=== PATIENT | female | born 1940 | race Caucasian/White ===

== ENCOUNTER 2023-02-18 09:39 | Emergency (ER) | payer MEDICARE, SELFPAY ==
--- NOTE | ~2023-02-18 | XR_ITS ---
EXAMINATION: XR wrist LT min 3V DATE: 02/18/2023 09:58 INDICATION: Left wrist pain. Fall. TECHNIQUE: 4 views of left wrist were obtained. COMPARISON: Left hand radiograph 03/31/2021 FINDINGS: Bone alignment is normal. There is a transverse fracture of distal radius. The distal fract ure fragment demonstrates impaction and dorsal angulation. There is 5 degrees dorsal tilt of the dist al articular surface. There is severe osteoarthritis of triscaphe joint and first carpometacarpal hawa nt. IMPRESSION: 1. Transverse fracture of distal radius. 2. Polyarticular osteoarthritis. Reviewed, dictated and finalized at location A.
[2023-02-18 09:43] VITALS: BP 183/106; PULSE 86; RESP 16; TEMP 36.8; O2SAT 100
--- NOTE | 2023-02-18 10:12 | ED.UPPEXIN ---
HPI - Extremity Injury (Upper) General Chief Complaint: Extremity Injury, Upper Stated Complaint: left wrist injury Time Seen by Provider: 02/18/23 09:50 History of Present Illness HPI narrative: 82-year-old left-handed female here for evaluation of left wrist pain after fall. Patient states that she tripped and lost her balance, catching herself with her left hand outstretched. She has not had pain and swelling to the wrist. Took an Aleve without relief of her pain. There is no numbness or tingling in the fingers. No difficulty moving the elbow or shoulder. No head injury or loss of consciousness in the fall. Related Data Allergies Allergy/AdvReac Type Severity Reaction Status Date / Time Sulfa (Sulfonamide Allergy Unknown Unknown Verified 02/18/23 10:18 Antibiotics) Review of Systems Review of Systems: Gen: Denies fevers or chills Eyes: Denies eye pain or visual change ENT: Denies congestion Respiratory: Denies shortness of breath or cough CV: Denies chest pain or palpitations GI: Denies abdominal pain nausea, emesis or diarrhea denies burning, urgency, frequency or hematuria Musculoskeletal: Reports left wrist pain Neuro: Denies numbness, tingling, weakness or focal weakness Skin: Denies rash Except as documented, all other systems reviewed and negative [facility] Past Medical History Medical History Arthritis of hand, degenerative Digital mucous cyst of finger of right hand Hip pain Hx of fracture of wrist Vision loss Family History Family History Other Family history of malignant neoplasm Social History Social History Smoking status: Never smoker Alcohol intake: current Exam Narrative: APPEARANCE: Well appearing, no pain in distress, well-nourished. Head: Normocephalic and atraumatic. EYES: PERRLA/EOMI, conjunctivae clear NOSE: No nasal drainage EARS: External ear normal in appearance THROAT: Oropharynx is clear. Mucous membranes are moist. NECK: Supple. No adenopathy, no masses. RESPIRATORY: Airway patent, respirations nonlabored. Clear to auscultation bilaterally, no rales, rhonchi, wheezing. CARDIOVASCULAR: 2+ radial pulses bilaterally. Regular rate and rhythm without murmurs, rubs, or gallops. ABDOMINAL: Normoactive bowel sounds. Soft, nontender, nondistended. No rebound tenderness or guarding. MUSCULOSKELETAL: There is tenderness to palpation along the distal third of the radius. There is some overlying swelling in that area. There is no tenderness to palpation along the carpal bones, snuffbox, phalanges. There is full range of motion in the fingers. Compartments are soft. NEURO: Normal speech. No focal neurologic deficits. SKIN: Skin is warm and dry. No rashes. PSYCHIATRIC: Normal affect/mood. Course Vital Signs Vital signs: Vital Signs Temperature 98.2 F 02/18/23 09:43 Pulse Rate 86 02/18/23 09:43 Respiratory Rate 16 02/18/23 09:43 Blood Pressure 183/106 H 02/18/23 09:43 Pulse Oximetry 100 02/18/23 09:43 Temperature 98.2 F 02/18/23 09:43 Pulse Rate 100 02/18/23 12:21 Respiratory Rate 18 02/18/23 12:21 Blood Pressure 155/95 H 02/18/23 12:21 Pulse Oximetry 97 02/18/23 12:21 MDM - Extremity Injury (Upper) MDM Narrative Medical decision making narrative: 82-year-old female here for evaluation of left wrist pain after she fell onto an outstretched hand earlier today the stairs. There is tenderness to palpation to the distal radius with mild swelling. NVID, compartments are soft. Evidence of a transverse distal radius fracture on the x-ray. She was placed in a splint and provided with orthopedic follow-up. We discussed return precautions and she voiced understanding. Discharge Plan Discharge Clinical Impression: Fracture of distal end of left radius Qu
[2023-02-18] MEDS: HYDROcodone/acetaminophen (*CRX) 5-325 MG TABLET 1 TAB PO (10:21)
[2023-02-18 12:21] VITALS: BP 155/95; PULSE 100; RESP 18; O2SAT 97
== END 2023-02-18 12:24 | disposition home or self-care (01) ==
PROVIDERS: Emergency Provider Physician Assistant; PCP Family Medicine
DX: S52.592A Other fractures of lower end of left radius, initial encounter for closed fracture (principal); M19.049 Primary osteoarthritis, unspecified hand; W01.0XXA Fall on same level from slipping, tripping and stumbling without subsequent striking against object, initial encounter
CPT/HCPCS: 29125; 73110; 99284; A9270

== ENCOUNTER → 2023-05-09 12:22 | Outpatient (CLI) | payer MEDICARE, SELFPAY ==
--- NOTE | ~2023-05-09 | DEXA_ITS ---
Bone Density Report Name: MORRIS KLEIN Age: 83 Sex: Female Ethnicity: White Date of : 1940 Indication: postmenopausal; screening for osteoporosis; height loss; prior fracture; Referring Provider: Nickie, Efrem Study: Bone densitometry was performed. Exam Date: May 09, 2023 Accession number: [id number] Bone Density: Region BMD T-score Z-score Classification AP Spine (L1-L4) 0.651 -3.6 -0.8 Osteoporosis Femoral Neck (Left) 0.373 -4.3 -1.8 Osteoporosis Total Hip (Left) 0.454 -4.0 -1.7 Osteoporosis Femoral Neck (Right) 0.483 -3.3 -0.8 Osteoporosis Total Hip (Right) 0.453 -4.0 -1.7 Osteoporosis Total Hip Mean 0.454 -4.0 -1.7 Osteoporosis World Health Organization criteria for BMD impression classify patients as: Normal (T-score at or above -1.0), Osteopenia (T-score between -1.0 and -2.5), or Osteoporosis (T-score at or below -2.5). 10-year Fracture Risk: FRAX not reported because: Some T-score for Spine Total or Hip Total or Femoral Neck at or below -2.5 Prior hip or vertebral fracture Clinical Information Provided by Patient: Have had a previous hip or vertebral fracture Has had a low trauma fracture Has used the following medications: Vitamin D Patient maximum height was 64 Menopause Age: 53 Drinks caffeinated beverages Onset of menses at age 12.5 Number of children 1 Impression: The patient has established osteoporosis, based on the Left Femoral Neck T-score and the existence of a prior fracture. The patient has risk factors, including: previous fracture. Discussion: HIGH RISK OF FRACTURE. BONE DENSITY IS UNDESIRABLY LOW AT ONE OR MORE SKELETAL SITES, CONSISTENT WITH POSTMENOPAUSAL OSTEOPOROSIS. This patient's lowest T-score, in a patient who has previously fractured, meets the World Health Organization's (WHO) criteria for severe osteoporosis. In untreated patients, the risk of osteoporotic fracture increases approximately two-fold for each 1.0 SD decrease in T-score. Low bone density is not the only risk factor for fracture; also consider factors such as patient's age, frailty or poor health, risk of falling, risk of injury, previous osteoporotic fracture, family history of osteoporosis, cigarette smoking, low body weight, etc. Not everyone with low bone mineral density has osteoporosis; osteomalacia and other metabolic bone disorders should also be considered. Patients who have osteoporosis should be evaluated for specific diseases and conditions (secondary causes) that may cause or contribute to bone loss. The [place] [employer] Endocrinologists (AACE) and National Osteoporosis Foundation (NOF) recommend pharmacologic intervention for all postmenopausal women with a previous hip or vertebral fracture and a T-score in this range. The patient should follow a healthful lifestyle
== END ==
PROVIDERS: PCP Student in an Organized Health Care Education/Training Program; Visit Provider Student in an Organized Health Care Education/Training Program
DX: Z13.820 Encounter for screening for osteoporosis (principal); M81.0 Age-related osteoporosis without current pathological fracture; Z78.0 Asymptomatic menopausal state
CPT/HCPCS: 77080

== ENCOUNTER 2023-11-06 12:35 | Inpatient (IN) | payer MEDICARE, SELFPAY ==
--- NOTE | ~2023-11-06 | XR_ITS ---
XR hip RT 2V w AP pelvis 11/06/2023 14:30 Indication: Right hip pain after fall Procedure: AP pelvis and 3 views right hip Comparison: No prior studies for comparison. Findings: There is a probable nondisplaced right femoral neck fracture. Osteopenia. Pelvic rings are intact. No significant soft tissue abnormality. No foreign bodies. There is osteoarthritis of the hip s. Impression: 1: Probable nondisplaced right femoral neck fracture. Recommend confirmation with CT. Reviewed, dictated and finalized at location B. ICIST SOLID STATE Impression: 1: Probable nondisplaced right femoral neck fracture. Recommend confirmation wi CT.
--- NOTE | ~2023-11-06 | CT_ITS ---
EXAMINATION: CT hip RT wo con DATE: 11/06/2023 15:43 INDICATION: Right femoral neck fracture post fall TECHNIQUE: High resolution computed tomography (CT) of the right hip was performed without intravenou s contrast. Additional sagittal and coronal reconstructions were performed. The dose-length product w as 137.33 mGy-cm. COMPARISON: Radiograph dated 11/06/2023 FINDINGS: Transcervical fracture of the proximal right femur. There is mild posterior and inferior predominant impaction. Mild to moderate osteoarthritis of the right hip. No significant joint effusion. No other fractures identified. Visualized portion of the bladder, uterus and bowels are unremarkable. No patho logically enlarged right pelvic or inguinal lymphadenopathy. IMPRESSION: 1. And cervical fracture of the proximal right femur with mild posterior and inferior impaction. Reviewed, dictated and finalized at location A. ING MACHINE TOOL SETTER IMPRESSION: 1. And cervical fracture of the proximal right femur with mild posterior and in ferior impaction.
--- NOTE | ~2023-11-06 | XR_ITS ---
EXAMINATION: XR chest 1V DATE: 11/06/2023 15:48 INDICATION: Fall at home with right hip fracture TECHNIQUE: frontal view of the chest was obtained. COMPARISON: None FINDINGS: Mild hyperexpansion of lungs. Mild to moderate biapical pleural-parenchymal scarring. No other airspa ce opacities, pulmonary edema, pleural effusion or pneumothorax. The cardiomediastinal silhouette is normal. Mild thoracolumbar levocurvature likely compensatory for a partially visualized lumbar dextro curvature. IMPRESSION: 1. No acute cardiopulmonary disease. Reviewed, dictated and finalized at location A. E ECOLOGIST
--- NOTE | ~2023-11-06 | CT_ITS ---
EXAMINATION: CT cervical spine wo con DATE: 11/06/2023 14:25 INDICATION: Status post fall. TECHNIQUE: Computed tomography (CT) of the cervical spine was performed without intravenous contrast. The dose-length product was 101 mGy-cm. Automated exposure control and iterative reconstruction tech nique were employed. COMPARISON: None FINDINGS: Vertebral junction is normal. Odontoid process is normal. There is disc narrowing and endpl ate degenerative change at C3-4, C4-5, C5-6 and C6-7. There is degenerative anterolisthesis at C7-T1. There is multilevel uncinate and facet hypertrophy. There is apical pleural thickening/scarring. Odo ntoid process is normal. No evidence for perched facet. There is carotid atherosclerosis. IMPRESSION: 1. Moderate cervical spondylosis. Reviewed, dictated and finalized at location B. DENCE DIRECTOR
--- NOTE | ~2023-11-06 | XR_ITS ---
EXAMINATION: XR surgery orthopedic DATE: 11/07/2023 18:25 INDICATION: Right femoral neck fracture. TECHNIQUE: 2 intraoperative spot fluoroscopic views of right hip were obtained. I was not present. Fl uoroscopy exposure time was 3 minutes 32 seconds. COMPARISON: CT 11/06/2023 FINDINGS: There is a subcapital fracture of right femoral neck with impaction. Internal fixation is s een with 3 lag screws. There is moderate right hip osteoarthritis. IMPRESSION: 1. Subcapital fracture of right femoral neck status post internal fixation. 2. Moderate hip osteoarthritis. Reviewed, dictated and finalized at location E. WARE SALES ASSISTANT
--- NOTE | ~2023-11-06 | CT_ITS ---
EXAMINATION: CT brain wo con DATE: 11/06/2023 14:25 INDICATION: Status post fall TECHNIQUE: Computed tomography (CT) of the head was performed without intravenous contrast. The dose- length product was 605.33 mGy-cm. Automated exposure control and iterative reconstruction technique were employed. COMPARISON: None FINDINGS: Generalized atrophy. There are scattered mild periventricular and subcortical white matter changes, most likely related to small vessel ischemic disease (microangiopathy). No ventriculomegaly or midline shift. Basilar cisterns are patent. There is mucosal thickening of the right maxillary sin us. Mastoids are pneumatized. No depressed skull fractures. IMPRESSION: 1. No acute intracranial abnormality. 2: Chronic age-related findings. 3: Right maxillary sinus disease. Reviewed, dictated and finalized at location B. STIC MAID
[2023-11-06 12:33] VITALS: BP 109/77; PULSE 88; RESP 18; TEMP 36.4; O2SAT 97
[2023-11-06 14:34] VITALS: BP 125/82; PULSE 74; RESP 19; O2SAT 100
--- NOTE | 2023-11-06 15:23 | ED.FALL ---
HPI - Fall General Chief Complaint: Fall Stated Complaint: FALL, RIGHT HIP PAIN Time Seen by Provider: 11/06/23 14:09 History of Present Illness HPI Narrative: Patient is an 83-year-old female presenting after a fall. Patient slipped and fell landing on her right hip in her house. Immediately had severe right hip pain so her daughter called EMS. Did not strike her head or lose consciousness. Only complains of right hip pain. No numbness or weakness. Related Data Home Medications Medication Instructions Recorded Confirmed dorzolamide 22.3 mg-timolol 6.8 1 drp EACH EYE BID 11/06/23 11/06/23 mg/mL eye drops duloxetine 30 mg capsule,delayed 30 mg PO DAILY 11/06/23 11/06/23 release levothyroxine 25 mcg tablet 25 mcg PO DAILY 11/06/23 11/06/23 losartan 25 mg tablet 25 mg PO DAILY 11/06/23 11/06/23 simvastatin 10 mg tablet 10 mg PO HS 11/06/23 11/06/23 Allergies Allergy/AdvReac Type Severity Reaction Status Date / Time Sulfa (Sulfonamide Allergy Unknown Unknown Verified 11/07/23 17:12 Antibiotics) Review of Systems Review of Systems: All systems reviewed & are unremarkable except as noted in HPI and below PMFSH Past Medical History Medical History Arthritis Arthritis of hand, degenerative Digital mucous cyst of finger of right hand Fracture of wrist Lt wrist DOI 02/18/23 Hearing loss Hx of fracture of wrist Hyperlipidemia Hypertension Hypothyroidism Osteoporosis Trochanteric bursitis of left hip Surgical History Surgical History History of cataract extraction History of colonoscopy History of nasal septoplasty History of surgery on right wrist (05/2007) Close reduction and percutaneous pinning of right distal radius fracture. Family History Family History Other Family history of malignant neoplasm Social History Social History Social History: Surrogate medical decision maker: Edwin Card, spouse. Code status: Full code. Smoking status: Never smoker Alcohol intake: current Drinks per week: 1 Substance use: never Substance use type: does not use Do You Feel Safe in your Home?: Yes Lack of Transportation: No Lack of Food: Never True Current Housing: I Have Housing Concerned About Future Housing: No Difficulty Paying Gas/Electric Bills: No Difficulty Paying for Meds: No Currently Unemployed: No Education: Bachelor's Degree Difficulty w/ Childcare or Family Care: No Occupation/Education: retired Spiritual care concerns: No Exam Narrative: GENERAL: Nontoxic, no acute distress, pleasant cooperative HEAD: Normocephalic, atraumatic. EYES: PERRLA and EOMI. ENT: Mucous membranes dry NECK: Supple. CHEST: Clear to auscultation. No respiratory distress. HEART: Regular rate and rhythm ABDOMEN: Soft, nontender, nondistended EXTREMITIES: R hip diffusely tender, ROM limited 2/2 pain; distal pulses and ROM intact SKIN: Warm, dry, no rash. NEURO: Alert and oriented x3. PSYCH: Normal mood and affect. Course Vital Signs Vital signs: Vital Signs Temperature 97.6 F 11/06/23 12:33 Pulse Rate 88 11/06/23 12:33 Respiratory Rate 18 11/06/23 12:33 Blood Pressure 109/77 11/06/23 12:33 Pulse Oximetry 97 11/06/23 12:33 Oxygen Delivery Room Air 11/06/23 12:33 Temperature 98.1 F 11/11/23 14:00 Pulse Rate 81 11/11/23 14:00 Respiratory Rate 18 11/11/23 14:00 Blood Pressure 101/64 11/11/23 14:00 Pulse Oximetry 97 11/11/23 14:00 Oxygen Delivery Room Air 11/11/23 09:35 Oxygen Flow Rate 8 11/07/23 19:00 MDM - Fall MDM Narrative Medical decision making narrative: 83-year-old female presenting with right hip pain following a fall. X-rays are concerning for a right femoral neck fracture, C
[2023-11-06] MEDS: MORPHINE SULFATE (*CRX) 2 MG/ML INJ IV PUSH ×3 (15:59→20:22)
[2023-11-06] MEDS: SODIUM CHLORIDE 0.9% IV 1,000 ML 999 ML IV CONT (15:59)
[2023-11-06 16:07] LABS: Basophils Percent Auto 0.4 % (0.2-1.2); Eosinophils Percent Auto 0.3 % (0-4.4); Hematocrit 45.5 % (37.0-47.0); Hemoglobin 14.9 g/dL (12.0-15.0); Immature Granulocyte Absolute 0.03 K/mm3 (0.00-0.031); Immature Granulocyte Percent A 0.3 % (0-0.5); Lymphocytes Absolute Auto 1.14 K/mm3 (0.9-3.2); Lymphocytes Percent Auto 10.8 % (18.3-44.2); Mean Corpuscular HGB Conc 32.7 g/dl (32-36); Mean Corpuscular Hemoglobin 31.8 pg (26-34); Mean Corpuscular Volume 97.2 fl (80-100); Mean Platelet Volume 10.6 fl (7.4-10.4); Monocytes Absolute Auto 0.9 K/mm3 (0.1-0.6); Monocytes Percent Auto 8.8 % (2.6-8.5); Neutrophils Absolute Auto 8.4 K/mm3 (1.3-6.7); Neutrophils Percent Auto 79.4 % (45.5-73.1); Platelet Count Result 260 k/mm3 (150-375); Red Blood Count 4.68 M/mm3 (4.2-5.4); Red Cell Distribution Width 13.2 % (11.5-14.5); White Blood Count 10.6 K/mm3 (4.5-10.0)
[2023-11-06 16:17] LABS: Alanine Aminotransferase 29 U/L (6-35); Alkaline Phosphatase 100 U/L (38-126); Anion Gap 7 mmol/L (8-16); Aspartate Amino Transferase 29 U/L (14-36); Bilirubin,Total 1.5 mg/dL (0.2-1.3); Blood Urea Nitrogen 11 mg/dL (7-17); Calcium 9.6 mg/dL (8.4-10.2); Carbon Dioxide 24 mmol/L (22-30); Chloride 100 mmol/L (98-107); Estimated CRCL calculation 52 ml/min; Estimated Glomerular Filt Rate > 60; Glucose 118 mg/dL (65-110); INR 0.9; Potassium 4.6 mmol/L (3.4-5.0); Sodium 131 mmol/L (137-145)
[2023-11-06 16:18] LABS: Partial Thromboplastin Time 30.4 SECONDS (22.3-36.8)
[2023-11-06 17:32] LABS: Appearance Urine Cloudy (Clear); Bacteria Urine 4+ /hpf; Bilirubin Urine Negative (Negative); Blood Urine Negative (Negative); Color Urine Yellow (Yellow); Glucose Urine UA Negative (Negative); Ketones Urine 2+ mg/dL (Negative); Leukocyte Esterase Ur Negative LEU/UL (Negative); Nitrate Urine Negative (Negative); Non Pathogenic Casts 0-2; Protein Urine Negative (Negative); RBC Urine 0-2 /hpf (0-2); Specific Grav Ur 1.017 (1.001-1.035); Squamous Epithelial Cell Urine None seen /hpf (Few); WBC Urine 0-5 /hpf
[2023-11-06 17:37] LABS: Add Urine Microscopic? YES
--- NOTE | 2023-11-06 18:40 | ADMGEN ---
This patient, Triny Card, was admitted to [facility] Surg Room 305-02. Patient/family oriented to hospital policies and general routines including ID bracelet, bed and alarms, visiting hours, pain management, procedures, bathroom and other care routines, personal items, smoking policy, room service/diet, and visiting hours. Information on how to activate the Rapid Response Team has been discussed. Patient/Family are encouraged to report perceived risks to care and to ask questions if they do not understand what they are told or what they should do.
[2023-11-06 18:54] VITALS: BP 136/99; PULSE 90; RESP 18; TEMP 36.7; O2SAT 98
[2023-11-06 18:56] VITALS: BMI 16.4
--- NOTE | 2023-11-06 19:58 | PM.IMHP ---
H&P: HPI History of Present Illness Date/Time: 11/06/23 19:00 Chief Complaint: Right hip pain after fall. Narrative: This is a very pleasant 83-year-old female with hypertension, hyperlipidemia, and hypothyroidism who presented to the emergency department via EMS for evaluation of right hip pain after a fall. The patient provides the following history. She reports feeling a bit off balance when she attempted to get up from the couch and she fell down onto her buttocks with immediate pain in her right hip. She was unable to get herself up due to the pain. Imaging showed a transcervical fracture of the proximal right femur and she is being admitted in this setting for surgical correction. At the time my evaluation she describes a hard, aching pain rated 8/10. She did not sustain any other injuries in the fall and denies head trauma and loss of consciousness. She does not recall feeling lightheaded or dizzy prior to the fall and denies vertigo, focal weakness, and paresthesias. Review of Systems Review of Systems: Twelve systems were reviewed. She has had some URI symptoms this winter but is healthy at this time. Urine showed 4+ bacteria but was negative for nitrates, leukocyte esterase, and no significant WBC. She has no symptoms to suggest UTI. No fever, chills, or sweats. No chest or pleuritic pain. No shortness of breath. Except as documented, all other systems were reviewed and are negative. [facility] Past Medical History Medical History (Updated 11/06/23 @ 22:12 by Isidra Freeman PA-C) Arthritis Hearing loss Hyperlipidemia Hypertension Hypothyroidism Osteoporosis Surgical History Surgical History History of cataract extraction History of colonoscopy History of nasal septoplasty History of surgery on right wrist (05/2007) Close reduction and percutaneous pinning of right distal radius fracture. Family History Family History Other Family history of malignant neoplasm Social History Social History (Updated 11/06/23 @ 22:09 by Isidra Freeman PA-C) Social History: Surrogate medical decision maker: Edwin Card, spouse. Code status: Full code. Smoking status: Never smoker Alcohol intake: current Drinks per week: 1 Substance use: never Substance use type: does not use Do You Feel Safe in your Home?: Yes Lack of Transportation: No Lack of Food: Never True Current Housing: I Have Housing Concerned About Future Housing: No Difficulty Paying Gas/Electric Bills: No Difficulty Paying for Meds: No Currently Unemployed: No Education: Bachelor's Degree Difficulty w/ Childcare or Family Care: No Occupation/Education: retired Spiritual care concerns: No Meds Home Medications and Allergies Home Medications Medication Instructions Recorded Confirmed Type dorzolamide 22.3 mg-timolol 6.8 1 drp EACH EYE BID 11/06/23 11/06/23 History mg/mL eye drops duloxetine 30 mg capsule,delayed 30 mg PO DAILY 11/06/23 11/06/23 History release levothyroxine 25 mcg tablet 25 mcg PO DAILY 11/06/23 11/06/23 History losartan 25 mg tablet 25 mg PO DAILY 11/06/23 11/06/23 History simvastatin 10 mg tablet 10 mg PO HS 11/06/23 11/06/23 History Allergies Allergy/AdvReac Type Severity Reaction Status Date / Time Sulfa (Sulfonamide Allergy Unknown Unknown Verified 11/06/23 12:39 Antibiotics) Vital Signs Vital Signs - 24 hr 11/06/23 12:33 11/06/23 14:34 11/06/23 18:54 Temperature 97.6 F 98.1 F Pulse Rate 88 74 90 Respiratory Rate 18 19 18 Blood Pressure 109/77 125/82 136/99 H Pulse Oximetry 97 100 98 Oxygen Delivery Room Air Exam Narrative: General: Thin, frail elderly female supine in bed. Weight: 44.7 kg. BMI: 16.4. HEENT: Normocephalic, atraumatic. Very hard of hearing. PERRL, EOMI. Sclera anicteric. Tacky mucous membranes. Neck: Supp
[2023-11-06 20:34] VITALS: BP 139/88; PULSE 93; RESP 16; TEMP 37.2; O2SAT 96
[2023-11-06] MEDS: ceFAZolin 1 GM/NS 50 ML 1 GM/50 ML BAG IVPB (23:06)
[2023-11-06] MEDS: SODIUM CHLORIDE 0.9% IV 1,000 ML 100 ML IV CONT (23:06)
[2023-11-06] MEDS: DORZOLAMIDE/TIMOLOL OPHTH SOL 10 ML BOTTLE 1 DROP EACH EYE (23:07)
[2023-11-06] MEDS: SIMVASTATIN 10 MG TABLET PO (23:16)
[2023-11-07] VITALS (15 sets, daily range): BP systolic 110–164; BP diastolic 65–113; PULSE 65–98; RESP 12–20; TEMP 35.7–37.3; O2SAT 93–100; BMI 16.6
[2023-11-07] MEDS: MORPHINE SULFATE (*CRX) 2 MG/ML INJ IV PUSH ×2 (00:15→05:20)
[2023-11-07] MEDS: ceFAZolin 1 GM/NS 50 ML 1 GM/50 ML BAG IVPB ×2 (05:20→15:52)
[2023-11-07 06:04] LABS: Hematocrit 40.8 % (37.0-47.0); Hemoglobin 13.2 g/dL (12.0-15.0); Mean Corpuscular HGB Conc 32.4 g/dl (32-36); Mean Corpuscular Hemoglobin 32.2 pg (26-34); Mean Corpuscular Volume 99.5 fl (80-100); Mean Platelet Volume 11.1 fl (7.4-10.4); Platelet Count Result 213 k/mm3 (150-375); Red Cell Distribution Width 13.2 % (11.5-14.5); White Blood Count 7.2 K/mm3 (4.5-10.0)
[2023-11-07 06:15] LABS: Anion Gap 3 mmol/L (8-16); Blood Urea Nitrogen 9 mg/dL (7-17); Calcium 8.8 mg/dL (8.4-10.2); Carbon Dioxide 26 mmol/L (22-30); Chloride 104 mmol/L (98-107); Estimated CRCL calculation 42 ml/min; Estimated Glomerular Filt Rate > 60; Glucose 109 mg/dL (65-110); Magnesium 1.9 mg/dL (1.6-2.3); Potassium 3.8 mmol/L (3.4-5.0); Sodium 133 mmol/L (137-145)
--- NOTE | 2023-11-07 07:54 | PCPTNOTE ---
Addendum entered by Claire Navarro, PT 11/07/23 11:55: Pt to have ortho surgery. Will require new therapy orders from ortho surgeon after surgery. PT orders discarded due to pt not being medically appropriate to participate at this time. Original Note: Pt is currently on bedrest and has ortho consult pending. Physical therapy will wait for ortho recommendations and removal of bedrest prior to seeing pt.
--- NOTE | 2023-11-07 08:09 | PCOTNOTE ---
Addendum entered by Tesha Araujo OT 11/07/23 12:15: Pt to have ortho surgery. Will require new therapy orders from ortho surgeon after surgery. OT orders cancelled at this time due to pt. not being appropriate for therapy services. Original Note: Pt is currently on bedrest and has ortho consult pending. Occupational therapy will wait for ortho recommendations and removal of bedrest prior to seeing pt.
--- NOTE | 2023-11-07 09:03 | PM.CNOR ---
Assessment and Plan Assessment and plan (1) Closed transcervical fracture of right femur: Qualifiers: Encounter type: initial encounter Qualified Code(s): S72.031A - Displaced midcervical fracture of right femur, initial encounter for closed fracture <Calli Shirley [employer] - Last Filed: 11/07/23 12:12> Code(s): S72.031A - Displaced midcervical fracture of right femur, initial encounter for closed fracture <Calli Dentonsaniya [facility] - Last Filed: 11/07/23 12:12> Status: Acute <Calli Dentonsanyia [facility] - Last Filed: 11/07/23 12:12> Assessment and Plan: History, exam and radiographs reviewed with the patient and daughter at the bedside. The fracture type and injury discussed with the patient and family. Operative and nonoperative treatment options reviewed. The patient elects for operative treatment. Discussed CRPP Right Hip Risks of surgery including but not limited to neurovascular damage, wound complications, blood clot, pulmonary embolus, stroke, myocardial infarction, anesthetic risks up to and including were reviewed. Continued pain and possible dysfunction were explained. No guarantees were offered. The patient understands and wishes to proceed. Plan: CRPP RIGHT Hip by Dr. Kerri WOLF. Bedrest. Pain Control. Obtain consent. HOLD anticoagulation. FALL PRECAUTIONS <Calli AcostaHelen Shirley [facility] - Last Filed: 11/07/23 12:12> (2) Bacteriuria: Code(s): R82.71 - Bacteriuria <Callisa Antoni Shirley [facility] - Last Filed: 11/07/23 12:12> Status: Acute <Calli AcostaHelen Fern, [facility] - Last Filed: 11/07/23 12:12> (3) Hyponatremia: Code(s): E87.1 - Hypo-osmolality and hyponatremia <Callisa Antoni Shirley [facility] - Last Filed: 11/07/23 12:12> Status: Acute <Calli KarlaHelen Shirley [facility] - Last Filed: 11/07/23 12:12> (4) Hyperlipidemia: Code(s): E78.5 - Hyperlipidemia, unspecified <Calli Antoni Shirley [facility] - Last Filed: 11/07/23 12:12> Status: Acute <CARITO Garcia - Last Filed: 11/07/23 12:12> (5) Hypothyroidism: Code(s): E03.9 - Hypothyroidism, unspecified <CARITO Garcia - Last Filed: 11/07/23 12:12> Status: Acute <CalliCARITO Tomas - Last Filed: 11/07/23 12:12> Assessment and Plan: Reviewed history, exam, radiographs and current labs with attending MD and covering surgeon, Dr. Manning, who agrees with current plan as indicated above. No further recommendations from Dr. Manning at this time. <CARITO Garcia - Last Filed: 11/07/23 12:12> History of Present Illness HPI Consult date: 11/07/23 <CARITO Garcia - Last Filed: 11/07/23 12:12> 11/07/23 <Mayank Manning MD - Last Filed: 11/07/23 17:24> Chief complaint: R Hip Fx <CARITO Garcia - Last Filed: 11/07/23 12:12> Narrative: 83 year old female admitted s/p fall at home. Per patient report, she slid off of the sofa onto the ground and was then unable to bear weight on the RLE. Hip CT in the ED reveals a transcervical fracture of the proximal right femur with mild posterior and inferior impaction. Patient admitted for further orthopedic evaluation, pain control and mobility. <CARITO Garcia - Last Filed: 11/07/23 12:12> Review of Systems Review of Systems: All systems reviewed & are unremarkable except as noted in HPI and below <CARITO Garcia - Last Filed: 11/07/23 12:12> [facility] Past Medical History Medical History: Medical History Arthritis Arthritis of hand, degenerative Digital mucous cyst of finger of right hand Fracture of wrist Lt wrist DOI 02/18/23 Hearing loss Hx of fracture of wrist Hyperlipidemia Hypertension Hypothyroidism Osteoporosis Trochanteric bursitis of left hip <Calli Shirley, CARITO - Last Filed: 11/07/23 12:12> Surgical History Surgical History: Surgical History (Reviewed 11/07/23 @ 16:43 by Margarito Valdez Pow
[2023-11-07] MEDS: HYDROcodone/acetaminophen (*CRX) 5-325 MG TABLET 1 TAB PO ×2 (09:30→15:47)
[2023-11-07] MEDS: DULoxetine HCL 30 MG CAPSULE.DR PO (09:30)
[2023-11-07] MEDS: DORZOLAMIDE/TIMOLOL OPHTH SOL 10 ML BOTTLE 1 DROP EACH EYE ×2 (09:31→21:35)
--- NOTE | 2023-11-07 11:26 | PM.IMPN ---
Progress Note: A&P Assessment and Plan (1) Closed transcervical fracture of right femur: Qualifiers: Encounter type: initial encounter Qualified Code(s): S72.031A - Displaced midcervical fracture of right femur, initial encounter for closed fracture Code(s): S72.031A - Displaced midcervical fracture of right femur, initial encounter for closed fracture Status: Acute Assessment and Plan: Patient going to OR today for bipolar hip replacement with Dr. Guerrero (2) Bacteriuria: Code(s): R82.71 - Bacteriuria Status: Acute Assessment and Plan: Patient on Ancef pre-op will plan to defer to culture as no leukocytes esterase and 0-5 WBCs on UA but 4+ bacteriuria. (3) Hyponatremia: Code(s): E87.1 - Hypo-osmolality and hyponatremia Status: Acute Assessment and Plan: Sodium 131 on admit, 133 this morning (4) Hypertension: Code(s): I10 - Essential (primary) hypertension Status: Acute Assessment and Plan: Stable, continue home medications (5) Hyperlipidemia: Code(s): E78.5 - Hyperlipidemia, unspecified Status: Acute Assessment and Plan: Stable, continue home medications (6) Hypothyroidism: Code(s): E03.9 - Hypothyroidism, unspecified Status: Acute Assessment and Plan: Continue home medications Plan Going to OR today PT/OT for SNF vs [facility] post op for rehab Time Spent With Patient Time with patient: 25 - 35 minutes Subjective Date/time seen: 11/07/23 11:26 Interval history: This is an 83-year-old female patient past history hypertension hypothyroidism hearing loss and recent memory changes suggestive [id number] dementia who presents to the hospital after a fall from her couch when she was trying to stand up. She reports that it is not off the ground when she landed she fractured her right hip. Patient denies any other injuries. Laboratory assessment shows mild hyponatremia, urinalysis with 4+ bacteria but no leukocyte esterase and minimal white cells. Will defer to culture. Patient is going to the operating room this afternoon for bipolar hip replacement. Discussed with family that she will likely need SNF care [facility] Review of Systems Review of Systems: All systems reviewed & are unremarkable except as noted in HPI and below Exam Narrative: General: Thin, frail elderly female supine in bed. HEENT: Normocephalic, atraumatic. Very hard of hearing. PERRL, EOMI. Sclera anicteric. Tacky mucous membranes. Neck: Supple. No JVD. Respiratory: Lungs are clear to auscultation bilaterally. Cardiovascular: Regular rate and rhythm with S1-S2. Gastrointestinal: Abdomen is soft, nontender, and nondistended with positive bowel sounds. Skin: Warm and dry. No rash or lesions on limited exam. Extremities: No cyanosis, clubbing, or edema. She is tender to palpation over the right anterior lateral hip. No gross deformities noted. Radial and pedal pulses intact. She is neurovascularly intact distal to the fracture site. Neurological: Alert. Cranial nerves 2-12 are grossly intact. No gross focal deficits to casual conversation. Psychiatric: Pleasant and cooperative with appropriate mood and affect. Objective Data Vital Signs Vital Signs: Vital Signs - 24 hr 11/06/23 12:33 11/06/23 14:34 11/06/23 18:54 Temperature 36.4 C 36.7 C Pulse Rate 88 74 90 Respiratory Rate 18 19 18 Blood Pressure 109/77 125/82 136/99 H Pulse Oximetry 97 100 98 Oxygen Delivery Room Air 11/06/23 20:34 11/07/23 05:25 Temperature 37.2 C 36.8 C Pulse Rate 93 75 Respiratory Rate 16 16 Blood Pressure 139/88 112/72 Pulse Oximetry 96 95 Oxygen Delivery Intake/Output Intake/Output: Intake & Output 11/04/23 11/05/23 11/06/23 11/07/23 23:59 23:59 23:59 23:59 Intake Total 1050 362 Output Total 725 Balance 1050 -363 Meds/Results Medications: Active
[2023-11-07] MEDS: SODIUM CHLORIDE 0.9% IV 1,000 ML 50 ML IV CONT (11:38)
--- NOTE | 2023-11-07 16:43 | WPDANESEPPF ---
Anes - Initial Pre Proc Eval Procedure: Operation Date: 11/07/23 16:00 Proposed Procedures p Right Hip Pinning - Mayank Manning MD Date/Time: 11/07/23 16:43 Surgeon: Salty Fenton MD Pre Op Diagnosis: R Hip Fx Patient Data Age: 83 Gender: F Height: 1.65 m Weight: 45.4 kg Last Vital Signs Temp 36.8 C 11/07/23 05:25 Pulse 75 11/07/23 05:25 Resp 16 11/07/23 05:25 BP 112/72 11/07/23 05:25 Pulse Ox 95 11/07/23 05:25 O2 Del Method Room Air 11/06/23 12:33 Allergies Allergy/AdvReac Type Severity Reaction Status Date / Time Sulfa (Sulfonamide Allergy Unknown Unknown Verified 11/06/23 12:39 Antibiotics) Home Medications Medication Instructions Recorded Confirmed Type dorzolamide 22.3 mg-timolol 6.8 1 drp EACH EYE BID 11/06/23 11/06/23 History mg/mL eye drops duloxetine 30 mg capsule,delayed 30 mg PO DAILY 11/06/23 11/06/23 History release levothyroxine 25 mcg tablet 25 mcg PO DAILY 11/06/23 11/06/23 History losartan 25 mg tablet 25 mg PO DAILY 11/06/23 11/06/23 History simvastatin 10 mg tablet 10 mg PO HS 11/06/23 11/06/23 History Laboratory Tests 11/06/23 11/07/23 17:15 05:34 WBC 7.2 K/mm3 (4.5-10.0) RBC 4.10 L M/mm3 (4.2-5.4) Hgb 13.2 g/dL (12.0-15.0) Hct 40.8 % (37.0-47.0) MCV 99.5 fl (80-100) MCH 32.2 pg (26-34) MCHC 32.4 g/dl (32-36) RDW 13.2 % (11.5-14.5) Plt Count 213 k/mm3 (150-375) MPV 11.1 H fl (7.4-10.4) Sodium 133 L mmol/L (137-145) Potassium 3.8 mmol/L (3.4-5.0) Chloride 104 mmol/L (98-107) Carbon Dioxide 26 mmol/L (22-30) Anion Gap 3 L mmol/L (8-16) BUN 9 mg/dL (7-17) Creatinine 0.60 L mg/dL (0.7-1.0) Estim Creat Clear Calc 42 ml/min Estimated GFR > 60 (59 - ) Glucose 109 mg/dL (65-110) Calcium 8.8 mg/dL (8.4-10.2) Magnesium 1.9 mg/dL (1.6-2.3) TSH (Reflex) 3.190 uIU/mL (0.465-4.68) Urine Color Yellow (Yellow) Urine Appearance Cloudy H (Clear) Urine pH 7.0 (5.0-9.0) Ur Specific [place] 1.017 (1.001-1.035) Urine Protein Negative mg/dL (Negative) Urine Glucose (UA) Negative mg/dL (Negative) Urine Ketones 2+ H mg/dL (Negative) Ur Blood (Man) Negative (Negative) Urine Nitrate Negative (Negative) Urine Bilirubin Negative (Negative) Urine Urobilinogen 1.0 mg/dL (<2.0) Leukocyte Esterase Rfl Negative JASMYN/UL (Negative) Urine RBC 0-2 /hpf (0-2) Urine WBC 0-5 /hpf Ur Squamous Epith Cells None seen /hpf (Few) Urine Bacteria 4+ H /hpf Urine Casts 0-2 Patient hx anesthesia problems: none Family hx anesthesia problems: none Results Review: All pre-operative results and documents have been reviewed as part of the pre-operative evaluation. [facility] Past Medical History Medical History Arthritis Arthritis of hand, degenerative Digital mucous cyst of finger of right hand Fracture of wrist Lt wrist DOI 02/18/23 Hearing loss Hx of fracture of wrist Hyperlipidemia Hypertension Hypothyroidism Osteoporosis Trochanteric bursitis of left hip Surgical History Surgical History History of cataract extraction History of colonoscopy History of nasal septoplasty History of surgery on right wrist (05/2007) Close reduction and percutaneous pinning of right distal radius fracture. Family History Family History Other Family history of malignant neoplasm Social History Social History Social History: Surrogate medical decision maker: Edwin Majormary anne, spouse. Code status: Full code
[2023-11-07] MEDS: LACTATED RINGERS 1,000 ML 30 ML IV CONT (16:54)
[2023-11-07] MEDS: TRANEXAMIC ACID 1,000MG/ISO100 1,000 MG/100 ML BAG 200 MG IVPB (16:58)
--- NOTE | 2023-11-07 17:23 | WPDHPUPDATE1 ---
History and Physical Update Update Date/Time: 11/07/23 17:23 History and Physical has been reviewed, including an updated exam of the patient. There are NO changes in the patient's condition. Risks, benefits, and alternatives have been discussed and questions answered. Patient agrees to proceed with procedure.
[2023-11-07] MEDS: ceFAZolin 2 GM/D5W 50 ML 2 GM/50 ML BAG IVPB (17:25)
--- NOTE | 2023-11-07 18:26 | W.PM.PROC2 ---
Procedure Note - Detailed Date of Procedure 11/07/23 Pre-op Diagnosis R Femoral neck fracture Post-op Diagnosis Same Procedure Performed PERCUTANEOUS PINNING RIGHT FEMORAL NECK FRACTURE Surgeon Mayank Manning MD Anesthesia General Description of Procedure THE PATIENT WAS TAKEN TO THE OPERATING ROOM AND PLACED UNDER GENERAL ANESTHESIA. THE PATIENT WAS PLACED ON A FRACTURE TABLE. USING TRACTION AND INTERNAL ROTATION THE FEMORAL NECK FRACTURE WAS REDUCED TO ANATOMIC POSITION. THE RIGHT LOWER EXTREMITY WAS PREPPED AND DRAPED IN THE STERILE FASHION FROM THE KNEE TO THE ILIAC CREST. THE INCISION WAS MADE ON THE LATERAL HIP JUST DISTAL TO THE GREATER TROCHANTER DOWN TO THE BONE. BLEEDERS WERE CAUTERIZED. 3 GUIDE PINS WERE PLACED THROUGH THE FEMORAL NECK AND PASSED THE FRACTURE SITE AND IN TO THE SUBCHONDRAL BONE OF THE FEMORAL HEAD. THREE 7.0 ARTHREX CANNULATED SCREWS WERE PLACED OVER THE GUIDE PINS AND THESE WERE SHOWN TO BE IN GOOD POSITION PER FLUOROSCOPY ON BOTH THE AP AND LATERAL VIEWS. ALL SCREWS HAD EXCELLENT BITES. THE WOUND WAS WASHED WELL. THE DEEP FASCIAL LAYER WAS APPROXIMATED WITH #1 VICRYL SUTURE, THE SUBCUTANEOUS LAYER WITH 2-0 VICRYL AND THE SKIN WAS APPROXIMATED WITH MUNIR. A STERILE DRESSING WAS PLACED. THE PATIENT WAS EXTUBATED AND SENT TO RECOVERY ROOM Estimated Blood Loss 20 Drains No Complications No immediate complications Condition Stable Disposition PACU
[2023-11-07] MEDS: METOPROLOL TARTRATE INJ 5 MG/5 ML VIAL 2.5 MG IV PUSH (18:56)
[2023-11-07] MEDS: SODIUM CHLORIDE 0.9% IV 1,000 ML 125 ML IV CONT (21:29)
[2023-11-07] MEDS: SIMVASTATIN 10 MG TABLET PO (21:30)
[2023-11-07] MEDS: FAMOTIDINE 20 MG TABLET PO (21:30)
[2023-11-08] VITALS (7 sets, daily range): BP systolic 99–138; BP diastolic 55–81; PULSE 69–85; RESP 16–18; TEMP 36.1–36.9; O2SAT 97–100
[2023-11-08] MEDS: ceFAZolin 1 GM/NS 50 ML 1 GM/50 ML BAG IVPB ×3 (00:31→16:47)
[2023-11-08] MEDS: ACETAMINOPHEN 325 MG TABLET 650 MG PO (03:56)
[2023-11-08] MEDS: LEVOTHYROXINE SODIUM 25 MCG TABLET PO (06:22)
[2023-11-08 06:26] LABS: Basophils Absolute Auto 0.1 K/mm3 (0.0-0.1); Basophils Percent Auto 0.6 % (0.2-1.2); Eosinophils Percent Auto 0.2 % (0-4.4); Hematocrit 41.4 % (37.0-47.0); Hemoglobin 13.8 g/dL (12.0-15.0); Immature Granulocyte Absolute 0.03 K/mm3 (0.00-0.031); Immature Granulocyte Percent A 0.3 % (0-0.5); Lymphocytes Absolute Auto 1.02 K/mm3 (0.9-3.2); Lymphocytes Percent Auto 11.4 % (18.3-44.2); Mean Corpuscular HGB Conc 33.3 g/dl (32-36); Mean Corpuscular Hemoglobin 32.5 pg (26-34); Mean Corpuscular Volume 97.4 fl (80-100); Mean Platelet Volume 11.2 fl (7.4-10.4); Monocytes Absolute Auto 0.8 K/mm3 (0.1-0.6); Monocytes Percent Auto 8.8 % (2.6-8.5); Neutrophils Absolute Auto 7.1 K/mm3 (1.3-6.7); Neutrophils Percent Auto 78.7 % (45.5-73.1); Platelet Count Result 212 k/mm3 (150-375); Red Blood Count 4.25 M/mm3 (4.2-5.4); Red Cell Distribution Width 13.3 % (11.5-14.5)
[2023-11-08 06:37] LABS: Alanine Aminotransferase 16 U/L (6-35); Alkaline Phosphatase 87 U/L (38-126); Anion Gap 8 mmol/L (8-16); Aspartate Amino Transferase 22 U/L (14-36); Bilirubin,Total 1.3 mg/dL (0.2-1.3); Blood Urea Nitrogen 10 mg/dL (7-17); Calcium 8.8 mg/dL (8.4-10.2); Carbon Dioxide 22 mmol/L (22-30); Chloride 103 mmol/L (98-107); Estimated CRCL calculation 43 ml/min; Estimated Glomerular Filt Rate > 60; Glucose 97 mg/dL (65-110); Magnesium 1.8 mg/dL (1.6-2.3); Potassium 3.8 mmol/L (3.4-5.0); Sodium 133 mmol/L (137-145)
--- NOTE | 2023-11-08 07:08 | P.CDI_ITS ---
CDI Query Clarification Request BMI 16.6 Nutritional Diagnostic Statement Moderate protein calorie malnutrition related to reduced appetite and intake as evidenced by pt report, significant weight loss of -10% x 5 months, and NFPE findings for muscle wasting and subcutaneous fat loss. Please refer to the comprehensive nutrition assessment for further information. Please clarify severity of protein calorie malnutrition if known: * Mild * Moderate * Severe * Other/unspecified <Guillermina Emmanuel RN - Last Filed: 11/08/23 07:13> Clarified Diagnosis Clarified Diagnosis: Moderate protein calorie malnutrition related to reduced appetite and intake as evidenced by pt report, significant weight loss of -10% x 5 months, and NFPE findings for muscle wasting and subcutaneous fat loss. <Magnus Scott [employer] SUPERINTENDENT - Last Filed: 11/08/23 07:24>
--- NOTE | 2023-11-08 07:22 | PM.IMPN ---
Progress Note: A&P Assessment and Plan (1) Closed transcervical fracture of right femur: Qualifiers: Encounter type: initial encounter Qualified Code(s): S72.031A - Displaced midcervical fracture of right femur, initial encounter for closed fracture Code(s): S72.031A - Displaced midcervical fracture of right femur, initial encounter for closed fracture Status: Acute Assessment and Plan: 11/07: Patient going to OR today for bipolar hip replacement with Dr. Guerrero 11/08: Participating well with therapy. Anesthesia seems to have exacerbated dementia symptoms (2) Bacteriuria: Code(s): R82.71 - Bacteriuria Status: Acute Assessment and Plan: Patient on Ancef pre-op will plan to defer to culture as no leukocytes esterase and 0-5 WBCs on UA but 4+ bacteriuria. (3) Hyponatremia: Code(s): E87.1 - Hypo-osmolality and hyponatremia Status: Acute Assessment and Plan: Sodium 131 on admit, 133 this morning (4) Hypertension: Code(s): I10 - Essential (primary) hypertension Status: Acute Assessment and Plan: Stable, continue home medications (5) Hyperlipidemia: Code(s): E78.5 - Hyperlipidemia, unspecified Status: Acute Assessment and Plan: Stable, continue home medications (6) Hypothyroidism: Code(s): E03.9 - Hypothyroidism, unspecified Status: Acute Assessment and Plan: Continue home medications (7) Moderate protein-calorie malnutrition: Code(s): E44.0 - Moderate protein-calorie malnutrition Status: Acute Assessment and Plan: Moderate protein calorie malnutrition related to reduced appetite and intake as evidenced by pt report, significant weight loss of -10% x 5 months, and NFPE findings for muscle wasting and subcutaneous fat loss. Plan PT/OT for SNF vs [facility] post op for rehab Time Spent With Patient Time with patient: 25 - 35 minutes Subjective Date/time seen: 11/08/23 07:22 Interval history: 11/07: This is an 83-year-old female patient past history hypertension hypothyroidism hearing loss and recent memory changes suggestive ewpo-ji-dydukldq dementia who presents to the hospital after a fall from her couch when she was trying to stand up. She reports that it is not off the ground when she landed she fractured her right hip. Patient denies any other injuries. Laboratory assessment shows mild hyponatremia, urinalysis with 4+ bacteria but no leukocyte esterase and minimal white cells. Will defer to culture. Patient is going to the operating room this afternoon for bipolar hip replacement. Discussed with family that she will likely need SNF care and they are interested in [facility]. 11/08: Patient doing well except anesthesia appears to be exacerbated her dementia symptoms and she has been quite forgetful and making up stories. Patient is participating with therapy and seems to be doing well after hip surgery. Encourage p.o. food and fluids. Discontinue IV fluids. Review of Systems Review of Systems: All systems reviewed & are unremarkable except as noted in HPI and below Exam Narrative: General: Thin, frail elderly female supine in bed. HEENT: Normocephalic, atraumatic. Very hard of hearing. PERRL, EOMI. Sclera anicteric. Moist mucous membranes. Neck: Supple. No JVD. Respiratory: Lungs are clear to auscultation bilaterally. Cardiovascular: Regular rate and rhythm with S1-S2. Gastrointestinal: Abdomen is soft, nontender, and nondistended with positive bowel sounds. Skin: Warm and dry. No rash or lesions on limited exam. Extremities: No cyanosis, clubbing, or edema. She is tender to palpation over the right anterior lateral hip. No gross deformities noted. Radial and pedal pulses intact. She is neurovascularly intact distal to the fracture site. Right hip dressing clean dry and intact. Neurological: Alert. Cranial nerves 2-12 are grossly intact. No gross f
[2023-11-08] MEDS: SENNA/DOCUSATE SODIUM TABLET 2 TAB PO ×2 (08:39→16:47)
[2023-11-08] MEDS: ENOXAPARIN 30 MG/0.3 ML SYRINGE SUB-Q (08:39)
[2023-11-08] MEDS: polyethylene glycoL 3350 17 GM POWD.PACK PO (08:39)
[2023-11-08] MEDS: DULoxetine HCL 30 MG CAPSULE.DR PO (08:40)
[2023-11-08] MEDS: LOSARTAN POTASSIUM 25 MG TABLET PO (08:40)
[2023-11-08] MEDS: FAMOTIDINE 20 MG TABLET PO ×2 (08:40→20:49)
[2023-11-08] MEDS: SODIUM CHLORIDE 0.9% IV 1,000 ML 125 ML IV CONT (08:41)
[2023-11-08] MEDS: DORZOLAMIDE/TIMOLOL OPHTH SOL 10 ML BOTTLE 1 DROP EACH EYE (08:41)
--- NOTE | 2023-11-08 09:25 | WPDANESPN ---
Anes - Prog Note Post-Op Date/Time: 11/08/23 09:25 Cardiovascular status: normal Respiratory status: normal Airway patency: baseline Mental status: baseline Post-Op hydration status: normal Vital Signs: Last Vital Signs Temp 36.4 C L 11/08/23 08:30 Pulse 76 11/08/23 08:30 Resp 18 11/08/23 08:30 BP 137/77 11/08/23 08:30 Pulse Ox 100 11/08/23 08:30 O2 Del Method Room Air 11/07/23 19:30 O2 Flow Rate 8 11/07/23 19:00 Pain Score (VAS): 12/23 I/O: Intake & Output 11/07/23 11/08/23 11/08/23 23:59 07:59 15:59 Intake Total 500 1350 120 Output Total 350 Balance 500 1000 120 Laboratory Tests 11/08/23 05:59 11/08/23 05:59 11/08/23 05:59 WBC 9.0 RBC 4.25 Hgb 13.8 Hct 41.4 MCV 97.4 MCH 32.5 MCHC 33.3 RDW 13.3 Plt Count 212 MPV 11.2 H Immature Gran % (Auto) 0.3 Neut % (Auto) 78.7 H Lymph % (Auto) 11.4 L Dougherty % (Auto) 8.8 H Eos % (Auto) 0.2 Baso % (Auto) 0.6 Lymph # (Auto) 1.02 Dougherty # (Auto) 0.8 H Eos # (Auto) 0.0 Baso # (Auto) 0.1 Abs Immat Gran (auto) 0.03 Absolute Neuts (auto) 7.1 H Absolute Nucleated RBC 0.0 Nucleated RBC % 0.0 Sodium 133 L Potassium 3.8 Chloride 103 Carbon Dioxide 22 Anion Gap 8 BUN 10 Creatinine 0.60 L Estim Creat Clear Calc 43 Estimated GFR > 60 Glucose 97 Calcium 8.8 Magnesium 1.8 Total Bilirubin 1.3 AST 22 ALT 16 Alkaline Phosphatase 87 Total Protein 6.0 L Albumin 3.0 L Post-procedural complaints: none Patient Feedback: Patient satisfied with anesthetic care.
--- NOTE | 2023-11-08 14:22 | PM.PNORT ---
Progress Note: A&P Assessment and Plan (1) Closed transcervical fracture of right femur: Qualifiers: Encounter type: initial encounter Qualified Code(s): S72.031A - Displaced midcervical fracture of right femur, initial encounter for closed fracture Code(s): S72.031A - Displaced midcervical fracture of right femur, initial encounter for closed fracture Status: Acute Assessment and Plan: POD 1 DOING WELL WITH SOME CONFUSION THIS MORNING. SHE WILL CONTINUE WITH HER PT AND SHE WILL REQUIRE REHAB FOR CONTINUED CARE. WILL CONTINUE TO FOLLOW. Subjective Subjective Date/Time Seen: 11/08/23 14:22 Interval history: POD 1 DOING WELL. NO CALF PAIN, SOME CONFUSION THIS AM, OTHERWISE PAIN CONTROLLED Exam Extrem: Other: VSS AFEBRILE DRESSING DRY NV INTACT NEG HOMANS SIGN CALF AND THIGH SOFT NON TENDER Objective Data Vital Signs Vital Signs: Vital Signs - 24 hr 11/07/23 16:47 11/07/23 18:30 11/07/23 18:45 Temperature 37.3 C 36.4 C L Pulse Rate 74 83 98 Respiratory Rate 16 16 13 Blood Pressure 128/71 158/113 H 164/93 H Pulse Oximetry 95 94 99 Oxygen Delivery Room Air Simple Face Mask Simple Face Mask Oxygen Flow Rate 8 8 11/07/23 18:56 11/07/23 19:00 11/07/23 18:54 Temperature Pulse Rate 98 71 98 Respiratory Rate 12 15 Blood Pressure 159/94 H 162/96 H Pulse Oximetry 100 98 Oxygen Delivery Simple Face Mask Simple Face Mask Oxygen Flow Rate 8 8 11/07/23 19:15 11/07/23 19:30 11/07/23 15:20 Temperature 37.1 C 36.2 C L Pulse Rate 71 70 74 Respiratory Rate 13 14 14 Blood Pressure 142/78 H 130/72 134/65 Pulse Oximetry 97 95 97 Oxygen Delivery Room Air Room Air Oxygen Flow Rate 11/07/23 19:57 11/07/23 20:15 11/07/23 20:45 Temperature 35.7 C L 35.9 C L 36.1 C L Pulse Rate 77 72 69 Respiratory Rate 18 20 18 Blood Pressure 120/83 111/80 112/80 Pulse Oximetry 94 93 96 Oxygen Delivery Oxygen Flow Rate 11/07/23 21:35 11/07/23 22:35 11/08/23 02:35 Temperature 36.5 C 35.9 C L 36.8 C Pulse Rate 70 65 79 Respiratory Rate 16 18 16 Blood Pressure 122/68 110/68 109/77 Pulse Oximetry 99 98 98 Oxygen Delivery Oxygen Flow Rate 11/08/23 06:03 11/08/23 08:30 11/08/23 10:22 Temperature 36.6 C 36.4 C L Pulse Rate 80 76 Respiratory Rate 16 18 Blood Pressure 129/81 137/77 Pulse Oximetry 100 100 Oxygen Delivery Room Air Oxygen Flow Rate 11/08/23 12:07 Temperature 36.7 C Pulse Rate 79 Respiratory Rate 16 Blood Pressure 99/55 L Pulse Oximetry 97 Oxygen Delivery Oxygen Flow Rate Intake/Output Intake/Output: Intake & Output 11/05/23 11/06/23 11/07/23 11/08/23 23:59 23:59 23:59 23:59 Intake Total 2456 550 5253 Output Total 725 350 Balance 7363 067 9403 Meds/Results Medications: Active Medications Generic Name Dose Route Start Last Admin Trade Name Freq PRN Reason Stop Dose Admin Acetaminophen 650 mg 11/06/23 22:16 11/08/23 03:56 Acetaminophen 325 Mg Tablet PO 650 mg Q6H PRN Administration Mild Pain (1-3) or Fever Acetaminophen 650 mg 11/07/23 19:39 Acetaminophen 325 Mg Tablet PO Q6H PRN Mild Pain (1-3) or Fever Hydrocodone Bitart/Acetaminophen 1 tab 11/07/23 19:39 Hydrocodone/Acetaminophen (*Crx) 7.5-325 Mg Tablet PO Q3H PRN Pain Rated 4-6 Hydrocodone Bitart/Acetaminophen 2 tab 11/07/23 19:39 Hydrocodone/Acetaminophen (*Crx) 7.5-325 Mg Tablet PO Q6H PRN Pain Rated 7-10 Diazepam 5 mg 11/07/23 19:39 Diazepam (*Crx) 5 Mg Tablet PO Q8H PRN Muscle Spasm Dorzolamide/Timolol 1 drop 11/06/23 22:20 11/08/23 08:41 Dorzolamide/Timolol Ophth Janay 10 Ml Bottle EACH EYE 1 drop Q12HR RANDA Administration Duloxetine HCl 30 mg 11/07/23 09:00 11/08/23 08:40 Duloxetine Hcl 30 Mg Capsule.Dr PO 30 mg DAILY RANDA Administration Enoxaparin Sodium 30 mg 11/08/23 09:00 11/08/23 08:39 Enoxaparin 30 Mg/0.3 Ml Syringe SUB-
[2023-11-08] MEDS: SIMVASTATIN 10 MG TABLET PO (20:49)
[2023-11-08] MEDS: diazePAM (*CRX) 5 MG TABLET PO (20:49)
[2023-11-09] MEDS: LEVOTHYROXINE SODIUM 25 MCG TABLET PO (05:51)
[2023-11-09 06:46] LABS: Basophils Percent Auto 0.5 % (0.2-1.2); Eosinophils Absolute Auto 0.3 K/mm3 (0-0.3); Eosinophils Percent Auto 3.2 % (0-4.4); Hematocrit 40.2 % (37.0-47.0); Hemoglobin 13.7 g/dL (12.0-15.0); Immature Granulocyte Absolute 0.03 K/mm3 (0.00-0.031); Immature Granulocyte Percent A 0.4 % (0-0.5); Lymphocytes Absolute Auto 1.16 K/mm3 (0.9-3.2); Lymphocytes Percent Auto 14.9 % (18.3-44.2); Mean Corpuscular HGB Conc 34.1 g/dl (32-36); Mean Corpuscular Hemoglobin 32.4 pg (26-34); Monocytes Absolute Auto 0.8 K/mm3 (0.1-0.6); Monocytes Percent Auto 10.2 % (2.6-8.5); Neutrophils Absolute Auto 5.5 K/mm3 (1.3-6.7); Neutrophils Percent Auto 70.8 % (45.5-73.1); Platelet Count Result 207 k/mm3 (150-375); Red Blood Count 4.23 M/mm3 (4.2-5.4); Red Cell Distribution Width 13.3 % (11.5-14.5); White Blood Count 7.8 K/mm3 (4.5-10.0)
[2023-11-09 06:57] LABS: Alanine Aminotransferase 9 U/L (6-35); Albumin Level 2.7 g/dL (3.5-5.1); Alkaline Phosphatase 79 U/L (38-126); Anion Gap 4 mmol/L (8-16); Aspartate Amino Transferase 20 U/L (14-36); Bilirubin,Total 1.3 mg/dL (0.2-1.3); Blood Urea Nitrogen 8 mg/dL (7-17); Calcium 8.6 mg/dL (8.4-10.2); Carbon Dioxide 24 mmol/L (22-30); Chloride 102 mmol/L (98-107); Estimated CRCL calculation 52 ml/min; Estimated Glomerular Filt Rate > 60; Glucose 113 mg/dL (65-110); Magnesium 1.9 mg/dL (1.6-2.3); Potassium 3.6 mmol/L (3.4-5.0); Sodium 130 mmol/L (137-145)
[2023-11-09 09:07] VITALS: O2SAT 95
--- NOTE | 2023-11-09 09:26 | PM.PNORT ---
Progress Note: A&P Assessment and Plan (1) Closed transcervical fracture of right femur: Qualifiers: Encounter type: initial encounter Qualified Code(s): S72.031A - Displaced midcervical fracture of right femur, initial encounter for closed fracture Code(s): S72.031A - Displaced midcervical fracture of right femur, initial encounter for closed fracture Status: Acute Assessment and Plan: POD #2: CRPP RIGHT HIP Continue PT/OT. NWB. Walker. HIGH FALL RISK. Continue pain control. Ice Hip. Protect skin. DVT prophylaxis with Lovenox. SCDs. Incentive Spirometry Use reviewed. Monitor Dressing. Change prior to discharge. Bowel Regimen. Dispo: [facility] pending progress with PT/OT and medical stability. Follow up arranged. Time Spent With Patient Time: Reviewed history, exam, radiographs and current labs with attending MD and covering surgeon, Dr. Manning, who agrees with current plan as indicated above. No further recommendations from Dr. Manning at this time. Subjective Subjective Date/Time Seen: 11/09/23 09:26 Post Op day: 2 Interval history: POD #2: CRPP Right Hip Patient doing well. Working with PT. Plan for d/c to [facility]. Review of Systems Review of Systems: All systems reviewed & are unremarkable except as noted in HPI and below Constitutional: Constitutional: Denies chills, Denies fever(s), Denies headache(s), Denies lethargy and Reports weakness ENT: Denies headache(s) Cardiovascular: Cardiovascular: Denies chest pain, Denies diaphoresis, Denies lightheadedness, Denies palpitations, Denies dyspnea and Denies dyspnea on exertion Respiratory: Respiratory: Denies cough, Denies dyspnea and Denies dyspnea on exertion Gastrointestinal: Gastrointestinal: Denies constipation, Denies diarrhea, Denies nausea and Denies vomiting Genitourinary: Genitourinary: Reports urinary frequency, Denies dysuria and Denies urinary hesitancy Musculoskeletal: Musculoskeletal: Reports joint swelling (Right Hip ) and Reports limited range of motion (Right Hip due to recent surgery ) Neurologic: Denies headache(s) and Reports weakness Endocrine: Endocrine: Denies palpitations Exam Const: General: comfortable and no acute distress Resp: Effort & Inspection: normal respiratory effort Cardio: Rate: regular rate Rhythm: regular rhythm GI: Inspection: non-distended Skin: General skin exam: normal color Other: Incision right hip c/d/i. Surrounding tissue without redness/warmth. Mild swelling consistent with recent surgery. No drainage. Neuro: Cognition (Neuro): normal cognition Speech: normal speech Extrem: Right lower extremity: normal to inspection, normal capillary refill, hip/thigh Details: tenderness Location: of the hip (Thigh soft ) Location: laterally and anteriorly, swelling Location: at the hip, abnormal ROM (limited consistent with recent surgery ) Details: pain with active ROM during and pain with passive ROM during and other (Incision c/d/i. ); no deformity and no unusual warmth, knee Details: normal to inspection; no tenderness and no swelling, lower leg (Negative Ny's Sign ) Details: normal to inspection and no edema; no tenderness, ankle (+ankle dorsiflexion/plantarflexion) Details: normal to inspection and no edema; no tenderness, no swelling and no ecchymosis and foot Details: normal capillary refill, toes with normal ROM, vascular exam Details: dorsalis pedis pulse present and motor-sensory exam Details: light-touch normal; no tenderness Objective Data Vital Signs Vital Signs: Vital Signs - 24 hr 11/08/23 10:22 11/08/23 12:07 11/08/23 14:00 Temperature 36.7 C 36.2 C L Pulse Rate 79 69 Respiratory Rate 16 18 Blood Pressure 99/55 L 122/75 Pulse Oximetry 97 98 Oxygen Delivery Room Air 11/08/23 17:24 11/08/23 20:54 11/09/23 09:07 Temperature 36.1 C L 36.9 C Pulse Rate 85 80 Respiratory Rate 18 18 Blood Pressure 102/61 138/79 Pulse Oximetry 99 99 95
[2023-11-09] MEDS: SENNA/DOCUSATE SODIUM TABLET 2 TAB PO ×2 (09:59→18:07)
[2023-11-09] MEDS: ENOXAPARIN 30 MG/0.3 ML SYRINGE SUB-Q (09:59)
[2023-11-09] MEDS: DULoxetine HCL 30 MG CAPSULE.DR PO (09:59)
[2023-11-09] MEDS: LOSARTAN POTASSIUM 25 MG TABLET PO (09:59)
[2023-11-09] MEDS: FAMOTIDINE 20 MG TABLET PO ×2 (09:59→20:03)
[2023-11-09] MEDS: polyethylene glycoL 3350 17 GM POWD.PACK PO (09:59)
[2023-11-09] MEDS: DORZOLAMIDE/TIMOLOL OPHTH SOL 10 ML BOTTLE 1 DROP EACH EYE (10:01)
[2023-11-09] MEDS: CIPROFLOXACIN 500 MG TAB PO ×2 (10:01→20:03)
--- NOTE | 2023-11-09 11:54 | PCNFU ---
Nutrition Follow-Up Complete: Moderate protein calorie malnutrition related to reduced appetite and intake as evidenced by pt report, significant weight loss of -10% x 5 months, and NFPE findings for muscle wasting and subcutaneous fat loss. Goal:Diet order PO intake greater than 50% of meals and supplements Pt is progressing towards goal. Pt current nutrition is Regular. Nutrition recommendation: Add Ensure compact BID Last recorded weight is 47.3 kg. Bowel Motility: No BM recorded at this time Labs Reviewed: NA:130, Cr:0.5 Meds Noted: lovenoz, zofran, miralax Skin: no skin issues noted Additional Notes: pt diet advanced to regular, intake 25-50% of meals, noted pt reports being a small eater. Nutrition ice cream cups in place BID for supplement. Will offer Ensure compact BID as well. Monitor for diet order, intake, wt, labs. Follow up in 5 days.
--- NOTE | 2023-11-09 12:42 | PM.IMPN ---
Progress Note: A&P Assessment and Plan (1) Closed transcervical fracture of right femur: Qualifiers: Encounter type: initial encounter Qualified Code(s): S72.031A - Displaced midcervical fracture of right femur, initial encounter for closed fracture Code(s): S72.031A - Displaced midcervical fracture of right femur, initial encounter for closed fracture Status: Acute (2) Bacteriuria: Code(s): R82.71 - Bacteriuria Status: Acute (3) Hyponatremia: Code(s): E87.1 - Hypo-osmolality and hyponatremia Status: Acute (4) Hypothyroidism: Code(s): E03.9 - Hypothyroidism, unspecified Status: Acute (5) Moderate protein-calorie malnutrition: Code(s): E44.0 - Moderate protein-calorie malnutrition Status: Acute Plan Closed transcervical fracture of right femur -post-op day 2 -PT/OT -SCD -D/C espinoza -Incentive spirometer while awake -Dressing changes daily or when soiled -Pain control -stool softener/laxative as needed -ICE to RT hip Bacteruria -Pseudomonas aeruginosa -likely contaminated -will treat with Cipro x 5 days -recent Catheter placement hyponatremia -Likely secondary to dehydration -NA 130 Neuro intacted -IV fluids Moderate protein-calorie malnutrition -Moderate protein calorie malnutrition related to reduced appetite and intake as evidenced by pt report, significant weight loss of -10% x 5 months, and NFPE findings for muscle wasting and subcutaneous fat loss. -encourage protein shakes with each meal -Vitamin D levels WNL Code status: Full code per patient DVT prophylaxis: Lovenox Stress ulcer prophylaxis: Famotidine PT/OT notes: [facility] Disposition: [facility] Time Spent With Patient Time with patient: 15 - 25 minutes Subjective Date/time seen: 11/09/23 12:42 Interval history: 11/07: This is an 83-year-old female patient past history hypertension hypothyroidism hearing loss and recent memory changes suggestive [id number] dementia who presents to the hospital after a fall from her couch when she was trying to stand up. She reports that it is not off the ground when she landed she fractured her right hip. Patient denies any other injuries. Laboratory assessment shows mild hyponatremia, urinalysis with 4+ bacteria but no leukocyte esterase and minimal white cells. Will defer to culture. Patient is going to the operating room this afternoon for bipolar hip replacement. Discussed with family that she will likely need SNF care and they are interested in [facility]. 11/08: Patient doing well except anesthesia appears to be exacerbated her dementia symptoms and she has been quite forgetful and making up stories. Patient is participating with therapy and seems to be doing well after hip surgery. Encourage p.o. food and fluids. Discontinue IV fluids. 11/09/2023: Patient up in chair doing well today still has moderate pain with PT/OT to RT hip. Incision dry, clean no bruising and dressing in place. Review of Systems Review of Systems: All systems reviewed & are unremarkable except as noted in HPI and below Exam Narrative: General: Thin, frail elderly female Up in chair HEENT: Normocephalic, atraumatic. Very hard of hearing. PERRL, EOMI. Sclera anicteric. Moist mucous membranes. Neck: Supple. No JVD. Respiratory: Lungs are clear to auscultation bilaterally. Cardiovascular: Regular rate and rhythm with S1-S2. Gastrointestinal: Abdomen is soft, nontender, and nondistended with positive bowel sounds. Skin: Warm and dry. No rash or lesions on limited exam. Extremities: No cyanosis, clubbing, or edema. dressing in place RT hip clean and dry no erythema noted No gross deformities noted. Radial and pedal pulses intact. She is neurovascularly intact distal to the fracture site. Right hip dressing clean dry and intact. Neurological: Alert.
[2023-11-09 14:00] VITALS: BP 103/69; PULSE 85; RESP 16; TEMP 37.1; O2SAT 100
[2023-11-09] MEDS: HYDROcodone/acetaminophen (*CRX) 7.5-325 MG TABLET 1 TAB PO (20:03)
[2023-11-09] MEDS: SIMVASTATIN 10 MG TABLET PO (20:03)
[2023-11-09 21:25] VITALS: BP 125/73; PULSE 83; RESP 20; TEMP 37.2; O2SAT 97
[2023-11-10 04:00] VITALS: BP 118/67; PULSE 81; RESP 18; TEMP 37.3; O2SAT 98
[2023-11-10] MEDS: LEVOTHYROXINE SODIUM 25 MCG TABLET PO (06:06)
[2023-11-10 06:33] LABS: Basophils Percent Auto 0.5 % (0.2-1.2); Eosinophils Absolute Auto 0.2 K/mm3 (0-0.3); Eosinophils Percent Auto 3.2 % (0-4.4); Hematocrit 37.7 % (37.0-47.0); Hemoglobin 12.4 g/dL (12.0-15.0); Immature Granulocyte Absolute 0.03 K/mm3 (0.00-0.031); Immature Granulocyte Percent A 0.5 % (0-0.5); Lymphocytes Absolute Auto 1.33 K/mm3 (0.9-3.2); Lymphocytes Percent Auto 20.1 % (18.3-44.2); Mean Corpuscular HGB Conc 32.9 g/dl (32-36); Mean Corpuscular Volume 97.2 fl (80-100); Mean Platelet Volume 10.9 fl (7.4-10.4); Monocytes Absolute Auto 0.8 K/mm3 (0.1-0.6); Monocytes Percent Auto 12.1 % (2.6-8.5); Neutrophils Absolute Auto 4.2 K/mm3 (1.3-6.7); Neutrophils Percent Auto 63.6 % (45.5-73.1); Platelet Count Result 226 k/mm3 (150-375); Red Blood Count 3.88 M/mm3 (4.2-5.4); Red Cell Distribution Width 13.6 % (11.5-14.5); White Blood Count 6.6 K/mm3 (4.5-10.0)
[2023-11-10 06:58] LABS: Alanine Aminotransferase 9 U/L (6-35); Albumin Level 2.5 g/dL (3.5-5.1); Alkaline Phosphatase 70 U/L (38-126); Anion Gap 1 mmol/L (8-16); Aspartate Amino Transferase 18 U/L (14-36); Bilirubin,Total 1.1 mg/dL (0.2-1.3); Blood Urea Nitrogen 10 mg/dL (7-17); Calcium 8.8 mg/dL (8.4-10.2); Carbon Dioxide 28 mmol/L (22-30); Chloride 103 mmol/L (98-107); Estimated CRCL calculation 52 ml/min; Estimated Glomerular Filt Rate > 60; Glucose 104 mg/dL (65-110); Potassium 3.6 mmol/L (3.4-5.0); Sodium 132 mmol/L (137-145)
[2023-11-10 08:00] VITALS: O2SAT 98
[2023-11-10] MEDS: DULoxetine HCL 30 MG CAPSULE.DR PO (08:20)
[2023-11-10] MEDS: CIPROFLOXACIN 500 MG TAB PO ×2 (08:20→20:47)
[2023-11-10] MEDS: SENNA/DOCUSATE SODIUM TABLET 2 TAB PO ×2 (08:20→16:42)
[2023-11-10] MEDS: LOSARTAN POTASSIUM 25 MG TABLET PO (08:20)
[2023-11-10] MEDS: FAMOTIDINE 20 MG TABLET PO ×2 (08:20→20:48)
[2023-11-10] MEDS: polyethylene glycoL 3350 17 GM POWD.PACK PO (08:20)
[2023-11-10] MEDS: ENOXAPARIN 30 MG/0.3 ML SYRINGE SUB-Q (08:24)
--- NOTE | 2023-11-10 09:01 | PM.PNORT ---
Progress Note: A&P Assessment and Plan (1) Closed transcervical fracture of right femur: Qualifiers: Encounter type: initial encounter Qualified Code(s): S72.031A - Displaced midcervical fracture of right femur, initial encounter for closed fracture Code(s): S72.031A - Displaced midcervical fracture of right femur, initial encounter for closed fracture Status: Acute Assessment and Plan: POD #3: CRPP RIGHT HIP Continue PT/OT. NWB. Walker. HIGH FALL RISK. Continue pain control. Ice Hip. Protect skin. DVT prophylaxis with Lovenox. SCDs. Incentive Spirometry Use reviewed. Monitor Dressing. Change prior to discharge. Bowel Regimen. Dispo: [facility] pending progress with PT/OT and medical stability. Follow up arranged. Time Spent With Patient Time: Reviewed history, exam, radiographs and current labs with attending MD and covering surgeon, Dr. Manning, who agrees with current plan as indicated above. No further recommendations from Dr. Manning at this time. Subjective Subjective Date/Time Seen: 11/10/23 09:01 Post Op day: 3 Interval history: POD #3: CRPP Right Hip Patient doing well. Working with PT. Plan for d/c to [facility]. Sitting up in chair at time of exam. Review of Systems Review of Systems: All systems reviewed & are unremarkable except as noted in HPI and below Constitutional: Constitutional: Denies chills, Denies fever(s), Denies headache(s), Denies lethargy and Reports weakness ENT: Denies headache(s) Cardiovascular: Cardiovascular: Denies chest pain, Denies diaphoresis, Denies lightheadedness, Denies palpitations, Denies dyspnea and Denies dyspnea on exertion Respiratory: Respiratory: Denies cough, Denies dyspnea and Denies dyspnea on exertion Gastrointestinal: Gastrointestinal: Denies constipation, Denies diarrhea, Denies nausea and Denies vomiting Genitourinary: Genitourinary: Reports urinary frequency, Denies dysuria and Denies urinary hesitancy Musculoskeletal: Musculoskeletal: Reports joint swelling (Right Hip ) and Reports limited range of motion (Right Hip due to recent surgery ) Neurologic: Denies headache(s) and Reports weakness Endocrine: Endocrine: Denies palpitations Objective Data Vital Signs Vital Signs: Vital Signs - 24 hr 11/09/23 09:07 11/09/23 14:00 11/09/23 20:00 Temperature 37.1 C Pulse Rate 85 Respiratory Rate 16 Blood Pressure 103/69 Pulse Oximetry 95 100 Oxygen Delivery Room Air Room Air 11/09/23 21:25 11/10/23 04:00 Temperature 37.2 C 37.3 C Pulse Rate 83 81 Respiratory Rate 20 18 Blood Pressure 125/73 118/67 Pulse Oximetry 97 98 Oxygen Delivery Intake/Output Intake/Output: Intake & Output 11/07/23 11/08/23 11/09/23 11/10/23 23:59 23:59 23:59 23:59 Intake Total 862 1880 490 100 Output Total 725 700 400 Balance 137 1180 90 100 Meds/Results Medications: Active Medications Generic Name Dose Route Start Last Admin Trade Name Freq PRN Reason Stop Dose Admin Acetaminophen 650 mg 11/06/23 22:16 11/08/23 03:56 Acetaminophen 325 Mg Tablet PO 650 mg Q6H PRN Administration Mild Pain (1-3) or Fever Acetaminophen 650 mg 11/07/23 19:39 Acetaminophen 325 Mg Tablet PO Q6H PRN Mild Pain (1-3) or Fever Hydrocodone Bitart/Acetaminophen 1 tab 11/07/23 19:39 11/09/23 20:03 Hydrocodone/Acetaminophen (*Crx) 7.5-325 Mg Tablet PO 1 tab Q3H PRN Administration Pain Rated 4-6 Hydrocodone Bitart/Acetaminophen 2 tab 11/07/23 19:39 Hydrocodone/Acetaminophen (*Crx) 7.5-325 Mg Tablet PO Q6H PRN Pain Rated 7-10 Calcium Carbonate 200 mg 11/08/23 20:22 Calcium Carbonate (Tums) 500 Mg (200 Mg Elemental) PO Q6H PRN Indigestion Ciprofloxacin 500 mg 11/09/23 09:35 11/10/23 08:20 Ciprofloxacin 500 Mg Tab PO 500 mg Q12HR RANDA Administration Diazepam 5 mg 11/07/23 19:39 11/08/23 20:49 Diazepam (*Crx) 5 Mg Tablet PO 5 mg Q8H PRN
--- NOTE | 2023-11-10 11:16 | PM.IMPN ---
Progress Note: A&P Assessment and Plan (1) Closed transcervical fracture of right femur: Qualifiers: Encounter type: initial encounter Qualified Code(s): S72.031A - Displaced midcervical fracture of right femur, initial encounter for closed fracture Code(s): S72.031A - Displaced midcervical fracture of right femur, initial encounter for closed fracture Status: Acute (2) Bacteriuria: Code(s): R82.71 - Bacteriuria Status: Acute (3) Hyponatremia: Code(s): E87.1 - Hypo-osmolality and hyponatremia Status: Acute (4) Hypothyroidism: Qualifiers: Hypothyroidism type: unspecified Qualified Code(s): E03.9 - Hypothyroidism, unspecified Code(s): E03.9 - Hypothyroidism, unspecified Status: Acute (5) Moderate protein-calorie malnutrition: Code(s): E44.0 - Moderate protein-calorie malnutrition Status: Acute Plan Closed transcervical fracture of right femur -post-op day 3 -PT/OT -SCD -D/C espinoza -Incentive spirometer while awake -Dressing changes daily or when soiled -Pain control -stool softener/laxative as needed -ICE to RT hip Bacteruria -Pseudomonas aeruginosa -likely contaminated -will treat with Cipro x 5 days -recent Catheter placement hyponatremia-Improving -Likely secondary to dehydration -NA 130 Neuro intacted -IV fluids Moderate protein-calorie malnutrition -Moderate protein calorie malnutrition related to reduced appetite and intake as evidenced by pt report, significant weight loss of -10% x 5 months, and NFPE findings for muscle wasting and subcutaneous fat loss. -encourage protein shakes with each meal -Vitamin D levels WNL Code status: Full code per patient DVT prophylaxis: Lovenox Stress ulcer prophylaxis: Famotidine PT/OT notes: [facility] Disposition: Patient did not met for inpatient rehab CC working on SNF placement Time Spent With Patient Time with patient: 15 - 25 minutes Subjective Date/time seen: 11/10/23 11:16 Interval history: 11/07: This is an 83-year-old female patient past history hypertension hypothyroidism hearing loss and recent memory changes suggestive [id number] dementia who presents to the hospital after a fall from her couch when she was trying to stand up. She reports that it is not off the ground when she landed she fractured her right hip. Patient denies any other injuries. Laboratory assessment shows mild hyponatremia, urinalysis with 4+ bacteria but no leukocyte esterase and minimal white cells. Will defer to culture. Patient is going to the operating room this afternoon for bipolar hip replacement. Discussed with family that she will likely need SNF care and [facility] 11/08: Patient doing well except anesthesia appears to be exacerbated her dementia symptoms and she has been quite forgetful and making up stories. Patient is participating with therapy and seems to be doing well after hip surgery. Encourage p.o. food and fluids. Discontinue IV fluids. 11/09/2023: Patient up in chair doing well today still has moderate pain with PT/OT to RT hip. Incision dry, clean no bruising and dressing in place. 11/10: Patient up in chair still reporting this am she is having difficulty putting any weight on leg to painful. Patient still no BM will start miralax. Insurance did not approve inpatient rehab working with CC for SNF, Labs WNL and vitals stable. Review of Systems Review of Systems: All systems reviewed & are unremarkable except as noted in HPI and below Exam Narrative: General: Thin, frail elderly female Up in chair HEENT: Normocephalic, atraumatic. Very hard of hearing. PERRL, EOMI. Sclera anicteric. Moist mucous membranes. Neck: Supple. No JVD. Respiratory: Lungs are clear to auscultation bilaterally. Cardiovascular: Regular rate and rhythm with S1-S2. Gastrointestinal: Abdomen is soft, nontender, and nondistended wi
[2023-11-10] MEDS: DORZOLAMIDE/TIMOLOL OPHTH SOL 10 ML BOTTLE 1 DROP EACH EYE ×2 (12:00→20:48)
[2023-11-10 14:00] VITALS: BP 101/63; PULSE 81; RESP 20; TEMP 36.6; O2SAT 97
--- NOTE | 2023-11-10 15:24 | PC.NURSE ---
Guillermina Britt [facility] ASSISTANT DIRECTOR notified of bladder scan 500, new orders received
[2023-11-10] MEDS: oxyBUTYnin CHLORIDE 5 MG TABLET PO (16:42)
[2023-11-10] MEDS: SIMVASTATIN 10 MG TABLET PO (20:47)
[2023-11-10 21:38] VITALS: BP 119/63; PULSE 86; RESP 16; TEMP 37.1; O2SAT 97
[2023-11-11] MEDS: LEVOTHYROXINE SODIUM 25 MCG TABLET PO (05:39)
[2023-11-11 05:42] VITALS: BP 133/77; PULSE 89; RESP 13; TEMP 36.8; O2SAT 98
[2023-11-11 06:25] LABS: Basophils Percent Auto 0.5 % (0.2-1.2); Eosinophils Absolute Auto 0.2 K/mm3 (0-0.3); Eosinophils Percent Auto 3.6 % (0-4.4); Hematocrit 38.2 % (37.0-47.0); Hemoglobin 12.4 g/dL (12.0-15.0); Immature Granulocyte Absolute 0.02 K/mm3 (0.00-0.031); Immature Granulocyte Percent A 0.3 % (0-0.5); Lymphocytes Absolute Auto 1.58 K/mm3 (0.9-3.2); Lymphocytes Percent Auto 24.8 % (18.3-44.2); Mean Corpuscular HGB Conc 32.5 g/dl (32-36); Mean Corpuscular Hemoglobin 31.9 pg (26-34); Mean Corpuscular Volume 98.2 fl (80-100); Mean Platelet Volume 10.7 fl (7.4-10.4); Monocytes Absolute Auto 0.8 K/mm3 (0.1-0.6); Monocytes Percent Auto 12.7 % (2.6-8.5); Neutrophils Absolute Auto 3.7 K/mm3 (1.3-6.7); Neutrophils Percent Auto 58.1 % (45.5-73.1); Platelet Count Result 270 k/mm3 (150-375); Red Blood Count 3.89 M/mm3 (4.2-5.4); Red Cell Distribution Width 13.6 % (11.5-14.5); White Blood Count 6.4 K/mm3 (4.5-10.0)
[2023-11-11 06:45] LABS: Alanine Aminotransferase 17 U/L (6-35); Albumin Level 2.5 g/dL (3.5-5.1); Alkaline Phosphatase 70 U/L (38-126); Anion Gap 4 mmol/L (8-16); Aspartate Amino Transferase 27 U/L (14-36); Bilirubin,Total 0.6 mg/dL (0.2-1.3); Blood Urea Nitrogen 14 mg/dL (7-17); Carbon Dioxide 26 mmol/L (22-30); Chloride 104 mmol/L (98-107); Estimated CRCL calculation 53 ml/min; Estimated Glomerular Filt Rate > 60; Glucose 113 mg/dL (65-110); Potassium 3.6 mmol/L (3.4-5.0); Sodium 134 mmol/L (137-145)
--- NOTE | 2023-11-11 08:49 | PM.PNORT ---
Progress Note: A&P Assessment and Plan (1) Closed transcervical fracture of right femur: Qualifiers: Encounter type: initial encounter Qualified Code(s): S72.031A - Displaced midcervical fracture of right femur, initial encounter for closed fracture Code(s): S72.031A - Displaced midcervical fracture of right femur, initial encounter for closed fracture Status: Acute Assessment and Plan: POD #4: CRPP RIGHT HIP Continue PT/OT. NWB. Walker. HIGH FALL RISK. Continue pain control. Ice Hip. Protect skin. DVT prophylaxis with Lovenox. SCDs. Incentive Spirometry Use reviewed. Monitor Dressing. Change prior to discharge. Bowel Regimen. Dispo: [facility] pending progress with PT/OT and medical stability. Follow up arranged. Subjective Subjective Date/Time Seen: 11/11/23 08:49 Post Op day: 4 Principal diagnosis: Right hip fracture Interval history: POD #4: CRPP Right Hip Patient doing well. Working with PT. Plan for d/c to [facility]. Sitting up in bed at time of exam. Exam Const: General: comfortable and no acute distress Resp: Effort & Inspection: normal respiratory effort Cardio: Rate: regular rate Rhythm: regular rhythm Skin: General skin exam: normal color Other: Incision right hip c/d/i. Surrounding tissue without redness/warmth. Mild swelling consistent with recent surgery. No drainage. Extrem: Right lower extremity: normal to inspection, normal capillary refill, hip/thigh Details: tenderness Location: of the hip (Thigh soft ) Location: laterally and anteriorly, swelling Location: at the hip, abnormal ROM (limited consistent with recent surgery ) Details: pain with active ROM during and pain with passive ROM during and other (Incision c/d/i. ); no deformity and no unusual warmth, knee Details: normal to inspection; no tenderness and no swelling, lower leg (Negative Ny's Sign ) Details: normal to inspection and no edema; no tenderness, ankle (+ankle dorsiflexion/plantarflexion) Details: normal to inspection and no edema; no tenderness, no swelling and no ecchymosis and foot Details: normal capillary refill, toes with normal ROM, vascular exam Details: dorsalis pedis pulse present and motor-sensory exam Details: light-touch normal; no tenderness Objective Data Vital Signs Vital Signs: Vital Signs - 24 hr 11/10/23 14:00 11/10/23 21:38 11/11/23 05:42 Temperature 97.8 F 98.7 F 98.2 F Pulse Rate 81 86 89 Respiratory Rate 20 16 13 Blood Pressure 101/63 119/63 133/77 Pulse Oximetry 97 97 98 Intake/Output Intake/Output: Intake & Output 11/08/23 11/09/23 11/10/23 11/11/23 23:59 23:59 23:59 23:59 Intake Total 7318 914 0837 500 Output Total 700 400 350 450 Balance 1180 90 656 50 Meds/Results Medications: Active Medications Generic Name Dose Route Start Last Admin Trade Name Freq PRN Reason Stop Dose Admin Acetaminophen 650 mg 11/07/23 19:39 Acetaminophen 325 Mg Tablet PO Q6H PRN Mild Pain (1-3) or Fever Hydrocodone Bitart/Acetaminophen 1 tab 11/07/23 19:39 11/09/23 20:03 Hydrocodone/Acetaminophen (*Crx) 7.5-325 Mg Tablet PO 1 tab Q3H PRN Administration Pain Rated 4-6 Hydrocodone Bitart/Acetaminophen 2 tab 11/07/23 19:39 Hydrocodone/Acetaminophen (*Crx) 7.5-325 Mg Tablet PO Q6H PRN Pain Rated 7-10 Calcium Carbonate 200 mg 11/08/23 20:22 Calcium Carbonate (Tums) 500 Mg (200 Mg Elemental) PO Q6H PRN Indigestion Ciprofloxacin 500 mg 11/09/23 09:35 11/10/23 20:47 Ciprofloxacin 500 Mg Tab PO 500 mg Q12HR RANDA Administration Diazepam 5 mg 11/07/23 19:39 11/08/23 20:49 Diazepam (*Crx) 5 Mg Tablet PO 5 mg Q8H PRN Administration Muscle Spasm Dorzolamide/Timolol 1 drop 11/06/23 22:20 11/10/23 20:48 Dorzolamide/Timolol Ophth Janay 10 Ml Bottle EACH EYE 1 drop Q12HR RANDA Administration Duloxetine HCl 30 mg 11/07/23 09:00 11/10/23 08:20 Duloxetine Hcl 30 Mg Capsule.D
[2023-11-11] MEDS: FAMOTIDINE 20 MG TABLET PO ×2 (09:34→21:07)
[2023-11-11] MEDS: DULoxetine HCL 30 MG CAPSULE.DR PO (09:34)
[2023-11-11] MEDS: LOSARTAN POTASSIUM 25 MG TABLET PO (09:34)
[2023-11-11] MEDS: oxyBUTYnin CHLORIDE 5 MG TABLET PO ×2 (09:34→16:30)
[2023-11-11] MEDS: SENNA/DOCUSATE SODIUM TABLET 2 TAB PO ×2 (09:34→16:30)
[2023-11-11] MEDS: polyethylene glycoL 3350 17 GM POWD.PACK PO (09:34)
[2023-11-11] MEDS: ENOXAPARIN 30 MG/0.3 ML SYRINGE SUB-Q (09:34)
[2023-11-11] MEDS: HYDROcodone/acetaminophen (*CRX) 7.5-325 MG TABLET 2 TAB PO (09:34)
[2023-11-11] MEDS: CIPROFLOXACIN 500 MG TAB PO ×2 (09:34→21:07)
--- NOTE | 2023-11-11 10:51 | PM.IMPN ---
Progress Note: A&P Assessment and Plan (1) Closed transcervical fracture of right femur: Qualifiers: Encounter type: initial encounter Qualified Code(s): S72.031A - Displaced midcervical fracture of right femur, initial encounter for closed fracture Code(s): S72.031A - Displaced midcervical fracture of right femur, initial encounter for closed fracture Status: Acute (2) Bacteriuria: Code(s): R82.71 - Bacteriuria Status: Acute (3) Hyponatremia: Code(s): E87.1 - Hypo-osmolality and hyponatremia Status: Acute (4) Hypothyroidism: Qualifiers: Hypothyroidism type: unspecified Qualified Code(s): E03.9 - Hypothyroidism, unspecified Code(s): E03.9 - Hypothyroidism, unspecified Status: Acute (5) Moderate protein-calorie malnutrition: Code(s): E44.0 - Moderate protein-calorie malnutrition Status: Acute Plan Closed transcervical fracture of right femur -post-op day 4 -PT/OT -SCD -D/C fole/ 1 episode of retention oxybutynin started and voiding well -Incentive spirometer while awake -Dressing changes daily or when soiled -Pain control -stool softener/laxative as needed -ICE to RT hip Bacteruria -Pseudomonas aeruginosa -likely contaminated -will treat with Cipro x 5 days -recent Catheter placement hyponatremia-Improving -Likely secondary to dehydration -NA Neuro intacted -IV fluids Moderate protein-calorie malnutrition -Moderate protein calorie malnutrition related to reduced appetite and intake as evidenced by pt report, significant weight loss of -10% x 5 months, and NFPE findings for muscle wasting and subcutaneous fat loss. -encourage protein shakes with each meal -Vitamin D levels WNL Code status: Full code per patient DVT prophylaxis: Lovenox Stress ulcer prophylaxis: Famotidine PT/OT notes: [facility] Disposition: Patient did not met for inpatient rehab CC working on SNF placement Time Spent With Patient Time with patient: less than 15 minutes Subjective Date/time seen: 11/11/23 10:51 Interval history: 11/07: This is an 83-year-old female patient past history hypertension hypothyroidism hearing loss and recent memory changes suggestive ucry-sk-desgvssc dementia who presents to the hospital after a fall from her couch when she was trying to stand up. She reports that it is not off the ground when she landed she fractured her right hip. Patient denies any other injuries. Laboratory assessment shows mild hyponatremia, urinalysis with 4+ bacteria but no leukocyte esterase and minimal white cells. Will defer to culture. Patient is going to the operating room this afternoon for bipolar hip replacement. Discussed with family that she will likely need SNF care and they are interested in [facility]. 11/08: Patient doing well except anesthesia appears to be exacerbated her dementia symptoms and she has been quite forgetful and making up stories. Patient is participating with therapy and seems to be doing well after hip surgery. Encourage p.o. food and fluids. Discontinue IV fluids. 11/09/2023: Patient up in chair doing well today still has moderate pain with PT/OT to RT hip. Incision dry, clean no bruising and dressing in place. 11/10: Patient up in chair still reporting this am she is having difficulty putting any weight on leg to painful. Patient still no BM will start miralax. Insurance did not approve inpatient rehab working with CC for SNF, Labs WNL and vitals stable. 11/11: Patient sitting on the side of the bed feeling well and working with PT. Still no BM Miralax daily onboard. Patient waiting on placement. Review of Systems Review of Systems: All systems reviewed & are unremarkable except as noted in HPI and below Exam Narrative: General: Thin, frail elderly female Up in chair HEENT: Normocephalic, atraumatic. Very hard of hearing. PERRL, EOMI. Sclera anicteric. Moist mucous mem
[2023-11-11 14:00] VITALS: BP 101/64; PULSE 81; RESP 18; TEMP 36.7; O2SAT 97
[2023-11-11] MEDS: DORZOLAMIDE/TIMOLOL OPHTH SOL 10 ML BOTTLE 1 DROP EACH EYE (21:07)
[2023-11-11] MEDS: SIMVASTATIN 10 MG TABLET PO (21:07)
[2023-11-11 22:00] VITALS: BP 109/71; PULSE 79; RESP 14; TEMP 36.6; O2SAT 97
[2023-11-12] MEDS: LEVOTHYROXINE SODIUM 25 MCG TABLET PO (05:41)
[2023-11-12 06:00] VITALS: BP 111/76; PULSE 73; RESP 14; TEMP 36.7; O2SAT 98
[2023-11-12 07:17] LABS: Basophils Percent Auto 0.7 % (0.2-1.2); Eosinophils Absolute Auto 0.2 K/mm3 (0-0.3); Eosinophils Percent Auto 3.2 % (0-4.4); Hematocrit 37.3 % (37.0-47.0); Hemoglobin 12.2 g/dL (12.0-15.0); Immature Granulocyte Absolute 0.02 K/mm3 (0.00-0.031); Immature Granulocyte Percent A 0.4 % (0-0.5); Lymphocytes Absolute Auto 1.42 K/mm3 (0.9-3.2); Lymphocytes Percent Auto 24.9 % (18.3-44.2); Mean Corpuscular HGB Conc 32.7 g/dl (32-36); Mean Corpuscular Hemoglobin 32.1 pg (26-34); Mean Corpuscular Volume 98.2 fl (80-100); Monocytes Absolute Auto 0.8 K/mm3 (0.1-0.6); Monocytes Percent Auto 13.5 % (2.6-8.5); Neutrophils Absolute Auto 3.3 K/mm3 (1.3-6.7); Neutrophils Percent Auto 57.3 % (45.5-73.1); Platelet Count Result 311 k/mm3 (150-375); Red Cell Distribution Width 13.7 % (11.5-14.5); White Blood Count 5.7 K/mm3 (4.5-10.0)
[2023-11-12 07:29] LABS: Alanine Aminotransferase 18 U/L (6-35); Albumin Level 2.5 g/dL (3.5-5.1); Alkaline Phosphatase 64 U/L (38-126); Anion Gap 2 mmol/L (8-16); Aspartate Amino Transferase 25 U/L (14-36); Bilirubin,Total 0.6 mg/dL (0.2-1.3); Blood Urea Nitrogen 13 mg/dL (7-17); Carbon Dioxide 27 mmol/L (22-30); Chloride 106 mmol/L (98-107); Estimated CRCL calculation 53 ml/min; Estimated Glomerular Filt Rate > 60; Glucose 102 mg/dL (65-110); Potassium 3.8 mmol/L (3.4-5.0); Sodium 135 mmol/L (137-145)
--- NOTE | 2023-11-12 07:36 | PM.PNORT ---
Progress Note: A&P Assessment and Plan (1) Closed transcervical fracture of right femur: Qualifiers: Encounter type: subsequent encounter Fracture healing: with routine healing Qualified Code(s): S72.031D - Displaced midcervical fracture of right femur, subsequent encounter for closed fracture with routine healing Code(s): S72.031A - Displaced midcervical fracture of right femur, initial encounter for closed fracture Status: Acute Assessment and Plan: POD #5: CRPP RIGHT HIP Continue PT/OT. NWB. Walker. HIGH FALL RISK. Continue pain control. Ice Hip. Protect skin. DVT prophylaxis with Lovenox. SCDs. Incentive Spirometry Use reviewed. Monitor Dressing. Change prior to discharge. Bowel Regimen. Dispo: [facility] pending progress with PT/OT and medical stability. Follow up arranged. Subjective Subjective Date/Time Seen: 11/12/23 07:36 Post Op day: 5 Principal diagnosis: Right hip fracture Interval history: POD #5: CRPP Right Hip Resting comfortably. No new complaints or overnight problems. Exam Const: General: comfortable and no acute distress Resp: Effort & Inspection: normal respiratory effort Cardio: Rate: regular rate Rhythm: regular rhythm Skin: General skin exam: normal color Other: Incision right hip c/d/i. Surrounding tissue without redness/warmth. Mild swelling consistent with recent surgery. No drainage. Extrem: Right lower extremity: normal to inspection, normal capillary refill, hip/thigh Details: tenderness Location: of the hip (Thigh soft ) Location: laterally and anteriorly, swelling Location: at the hip, abnormal ROM (limited consistent with recent surgery ) Details: pain with active ROM during and pain with passive ROM during and other (Incision c/d/i. ); no deformity and no unusual warmth, knee Details: normal to inspection; no tenderness and no swelling, lower leg (Negative Ny's Sign ) Details: normal to inspection and no edema; no tenderness, ankle (+ankle dorsiflexion/plantarflexion) Details: normal to inspection and no edema; no tenderness, no swelling and no ecchymosis and foot Details: normal capillary refill, toes with normal ROM, vascular exam Details: dorsalis pedis pulse present and motor-sensory exam Details: light-touch normal; no tenderness Objective Data Vital Signs Vital Signs: Vital Signs - 24 hr 11/11/23 09:35 11/11/23 14:00 11/11/23 22:00 Temperature 98.1 F 97.9 F Pulse Rate 81 79 Respiratory Rate 18 14 Blood Pressure 101/64 109/71 Pulse Oximetry 97 97 Oxygen Delivery Room Air 11/12/23 06:00 Temperature 98.1 F Pulse Rate 73 Respiratory Rate 14 Blood Pressure 111/76 Pulse Oximetry 98 Oxygen Delivery Intake/Output Intake/Output: Intake & Output 11/09/23 11/10/23 11/11/23 11/12/23 23:59 23:59 23:59 23:59 Intake Total 490 1006 1050 Output Total 400 350 450 Balance 90 656 600 Meds/Results Medications: Active Medications Generic Name Dose Route Start Last Admin Trade Name Freq PRN Reason Stop Dose Admin Acetaminophen 650 mg 11/07/23 19:39 Acetaminophen 325 Mg Tablet PO Q6H PRN Mild Pain (1-3) or Fever Hydrocodone Bitart/Acetaminophen 1 tab 11/07/23 19:39 11/09/23 20:03 Hydrocodone/Acetaminophen (*Crx) 7.5-325 Mg Tablet PO 1 tab Q3H PRN Administration Pain Rated 4-6 Hydrocodone Bitart/Acetaminophen 2 tab 11/07/23 19:39 11/11/23 09:34 Hydrocodone/Acetaminophen (*Crx) 7.5-325 Mg Tablet PO 2 tab Q6H PRN Administration Pain Rated 7-10 Calcium Carbonate 200 mg 11/08/23 20:22 Calcium Carbonate (Tums) 500 Mg (200 Mg Elemental) PO Q6H PRN Indigestion Ciprofloxacin 500 mg 11/09/23 09:35 11/11/23 21:07 Ciprofloxacin 500 Mg Tab PO 500 mg Q12HR RANDA Administration Diazepam 5 mg 11/07/23 19:39 11/08/23 20:49 Diazepam (*Crx) 5 Mg Tablet PO 5 mg Q8H PRN Administration Muscle Spasm Dorzolamide/Timolol 1 drop
[2023-11-12] MEDS: DULoxetine HCL 30 MG CAPSULE.DR PO (08:56)
[2023-11-12] MEDS: HYDROcodone/acetaminophen (*CRX) 7.5-325 MG TABLET 2 TAB PO (08:56)
[2023-11-12] MEDS: CIPROFLOXACIN 500 MG TAB PO ×2 (08:56→21:08)
[2023-11-12] MEDS: LOSARTAN POTASSIUM 25 MG TABLET PO (08:56)
[2023-11-12] MEDS: oxyBUTYnin CHLORIDE 5 MG TABLET PO ×3 (08:56→17:15)
[2023-11-12] MEDS: SENNA/DOCUSATE SODIUM TABLET 2 TAB PO ×2 (08:56→17:15)
[2023-11-12] MEDS: ENOXAPARIN 30 MG/0.3 ML SYRINGE SUB-Q (08:56)
[2023-11-12] MEDS: FAMOTIDINE 20 MG TABLET PO ×2 (08:56→21:08)
[2023-11-12] MEDS: polyethylene glycoL 3350 17 GM POWD.PACK PO (08:56)
[2023-11-12] MEDS: DORZOLAMIDE/TIMOLOL OPHTH SOL 10 ML BOTTLE 1 DROP EACH EYE ×2 (08:57→21:11)
--- NOTE | 2023-11-12 11:05 | PM.IMPN ---
Progress Note: A&P Assessment and Plan (1) Closed transcervical fracture of right femur: Qualifiers: Encounter type: subsequent encounter Fracture healing: with routine healing Qualified Code(s): S72.031D - Displaced midcervical fracture of right femur, subsequent encounter for closed fracture with routine healing Code(s): S72.031A - Displaced midcervical fracture of right femur, initial encounter for closed fracture Status: Acute (2) Bacteriuria: Code(s): R82.71 - Bacteriuria Status: Acute Assessment and Plan: RESOLVED (3) Hyponatremia: Code(s): E87.1 - Hypo-osmolality and hyponatremia Status: Acute (4) Hypothyroidism: Qualifiers: Hypothyroidism type: unspecified Qualified Code(s): E03.9 - Hypothyroidism, unspecified Code(s): E03.9 - Hypothyroidism, unspecified Status: Acute (5) Moderate protein-calorie malnutrition: Code(s): E44.0 - Moderate protein-calorie malnutrition Status: Acute Plan Closed transcervical fracture of right femur -post-op day 4 -PT/OT -SCD -D/C fole/ 1 episode of retention oxybutynin started and voiding well -Incentive spirometer while awake -Dressing changes daily or when soiled -Pain control -stool softener/laxative as needed -ICE to RT hip Bacteruria-RESOLVED -Pseudomonas aeruginosa -likely contaminated -will treat with Cipro x 5 days -recent Catheter placement hyponatremia-Improving -Likely secondary to dehydration -NA Neuro intacted -IV fluids Moderate protein-calorie malnutrition -Moderate protein calorie malnutrition related to reduced appetite and intake as evidenced by pt report, significant weight loss of -10% x 5 months, and NFPE findings for muscle wasting and subcutaneous fat loss. -encourage protein shakes with each meal -Vitamin D levels WNL Code status: Full code per patient DVT prophylaxis: Lovenox Stress ulcer prophylaxis: Famotidine PT/OT notes: [facility] Disposition: Patient did not met for inpatient rehab CC working on SNF placement Time Spent With Patient Time with patient: less than 15 minutes Subjective Date/time seen: 11/12/23 11:05 Interval history: 11/07: This is an 83-year-old female patient past history hypertension hypothyroidism hearing loss and recent memory changes suggestive [id number] dementia who presents to the hospital after a fall from her couch when she was trying to stand up. She reports that it is not off the ground when she landed she fractured her right hip. Patient denies any other injuries. Laboratory assessment shows mild hyponatremia, urinalysis with 4+ bacteria but no leukocyte esterase and minimal white cells. Will defer to culture. Patient is going to the operating room this afternoon for bipolar hip replacement. Discussed with family that she will likely need SNF care and they are interested in [facility]. 11/08: Patient doing well except anesthesia appears to be exacerbated her dementia symptoms and she has been quite forgetful and making up stories. Patient is participating with therapy and seems to be doing well after hip surgery. Encourage p.o. food and fluids. Discontinue IV fluids. 11/09/2023: Patient up in chair doing well today still has moderate pain with PT/OT to RT hip. Incision dry, clean no bruising and dressing in place. 11/10: Patient up in chair still reporting this am she is having difficulty putting any weight on leg to painful. Patient still no BM will start miralax. Insurance did not approve inpatient rehab working with CC for SNF, Labs WNL and vitals stable. 11/11: Patient sitting on the side of the bed feeling well and working with PT. Still no BM Miralax daily onboard. Patient waiting on placement. 11/12: Patient cheerful and pleasant up in chair still NWB working with PT pain controlled at rest but rates 8/10 with activity. Review of Systems Review of Systems: Alyson
[2023-11-12 14:00] VITALS: BP 103/77; PULSE 79; RESP 14; TEMP 36.3; O2SAT 100
[2023-11-12 20:00] VITALS: PULSE 82; RESP 16; O2SAT 100
[2023-11-12] MEDS: SIMVASTATIN 10 MG TABLET PO (21:08)
[2023-11-12 22:00] VITALS: BP 106/75; PULSE 82; RESP 16; TEMP 36.4; O2SAT 100
[2023-11-13 05:31] LABS: Appearance Urine Cloudy (Clear); Bacteria Urine None Seen /hpf; Bilirubin Urine Negative (Negative); Blood Urine Negative (Negative); Color Urine Yellow (Yellow); Glucose Urine UA Negative (Negative); Ketones Urine Negative (Negative); Leukocyte Esterase Ur Negative LEU/UL (NEGATIVE); Nitrate Urine Negative (Negative); Non Pathogenic Casts 0-2; Protein Urine Negative (Negative); RBC Urine 0-2 /hpf (0-2); Specific Grav Ur 1.014 (1.001-1.035); Squamous Epithelial Cell Urine None seen /hpf (Few); WBC Urine 0-5 /hpf (0-3); pH Urine 6.5 (5.0-9.0)
[2023-11-13 05:34] LABS: Add Urine Microscopic? NO
[2023-11-13 06:00] VITALS: BP 108/76; PULSE 77; RESP 16; TEMP 36.3; O2SAT 99
[2023-11-13] MEDS: LEVOTHYROXINE SODIUM 25 MCG TABLET PO (06:12)
[2023-11-13 06:42] LABS: Basophils Absolute Auto 0.1 K/mm3 (0.0-0.1); Basophils Percent Auto 0.9 % (0.2-1.2); Eosinophils Absolute Auto 0.3 K/mm3 (0-0.3); Eosinophils Percent Auto 3.6 % (0-4.4); Hematocrit 38.2 % (37.0-47.0); Hemoglobin 12.4 g/dL (12.0-15.0); Immature Granulocyte Absolute 0.03 K/mm3 (0.00-0.031); Immature Granulocyte Percent A 0.4 % (0-0.5); Lymphocytes Absolute Auto 1.62 K/mm3 (0.9-3.2); Lymphocytes Percent Auto 23.1 % (18.3-44.2); Mean Corpuscular HGB Conc 32.5 g/dl (32-36); Mean Corpuscular Hemoglobin 32.2 pg (26-34); Mean Corpuscular Volume 99.2 fl (80-100); Mean Platelet Volume 9.9 fl (7.4-10.4); Monocytes Absolute Auto 0.9 K/mm3 (0.1-0.6); Monocytes Percent Auto 12.3 % (2.6-8.5); Neutrophils Absolute Auto 4.2 K/mm3 (1.3-6.7); Neutrophils Percent Auto 59.7 % (45.5-73.1); Platelet Count Result 345 k/mm3 (150-375); Red Blood Count 3.85 M/mm3 (4.2-5.4); Red Cell Distribution Width 13.7 % (11.5-14.5)
[2023-11-13 07:01] LABS: Alanine Aminotransferase 23 U/L (6-35); Albumin Level 2.7 g/dL (3.5-5.1); Alkaline Phosphatase 76 U/L (38-126); Anion Gap 3 mmol/L (8-16); Aspartate Amino Transferase 30 U/L (14-36); Bilirubin,Total 0.7 mg/dL (0.2-1.3); Blood Urea Nitrogen 14 mg/dL (7-17); Calcium 9.3 mg/dL (8.4-10.2); Carbon Dioxide 29 mmol/L (22-30); Chloride 103 mmol/L (98-107); Estimated CRCL calculation 46 ml/min; Estimated Glomerular Filt Rate > 60; Glucose 102 mg/dL (65-110); Potassium 3.6 mmol/L (3.4-5.0); Sodium 135 mmol/L (137-145)
[2023-11-13 08:00] VITALS: O2SAT 99
[2023-11-13] MEDS: CIPROFLOXACIN 500 MG TAB PO ×2 (08:40→21:00)
[2023-11-13] MEDS: DULoxetine HCL 30 MG CAPSULE.DR PO (08:40)
[2023-11-13] MEDS: DORZOLAMIDE/TIMOLOL OPHTH SOL 10 ML BOTTLE 1 DROP EACH EYE ×2 (08:40→21:03)
[2023-11-13] MEDS: SENNA/DOCUSATE SODIUM TABLET 2 TAB PO ×2 (08:40→16:28)
[2023-11-13] MEDS: FAMOTIDINE 20 MG TABLET PO ×2 (08:41→21:01)
[2023-11-13] MEDS: ENOXAPARIN 30 MG/0.3 ML SYRINGE SUB-Q (08:41)
[2023-11-13] MEDS: polyethylene glycoL 3350 17 GM POWD.PACK PO (08:41)
[2023-11-13] MEDS: oxyBUTYnin CHLORIDE 5 MG TABLET PO ×3 (08:41→16:28)
--- NOTE | 2023-11-13 09:23 | PM.PNORT ---
Progress Note: A&P Assessment and Plan (1) Closed transcervical fracture of right femur: Qualifiers: Encounter type: subsequent encounter Fracture healing: with routine healing Qualified Code(s): S72.031D - Displaced midcervical fracture of right femur, subsequent encounter for closed fracture with routine healing Code(s): S72.031A - Displaced midcervical fracture of right femur, initial encounter for closed fracture Status: Acute Assessment and Plan: POD #6: CRPP RIGHT HIP Continue PT/OT. NWB. Walker. HIGH FALL RISK. Continue pain control. Ice Hip. Protect skin. DVT prophylaxis with Lovenox. SCDs. Incentive Spirometry Use reviewed. Monitor Dressing. Change prior to discharge. Bowel Regimen. Add suppository. Dispo: [facility] vs. SNF vs. Home Health pending progress with PT/OT, insurance authorization and medical stability. Follow up arranged. Plan Reviewed history, exam, radiographs and current labs with attending MD and covering surgeon, Dr. Manning, who agrees with current plan as indicated above. No further recommendations from Dr. Manning at this time. Subjective Subjective Date/Time Seen: 11/13/23 09:23 Post Op day: 6 Principal diagnosis: Right hip fracture Interval history: POD #6: CRPP Right Hip Patient working well with PT/OT. Awaiting placement. Still with difficulty maintaining NWB RLE. No BM since surgery. Review of Systems Review of Systems: All systems reviewed & are unremarkable except as noted in HPI and below Constitutional: Constitutional: Denies chills, Denies fever(s), Denies headache(s), Denies lethargy and Reports weakness ENT: Denies headache(s) Cardiovascular: Cardiovascular: Denies chest pain, Denies diaphoresis, Denies lightheadedness, Denies palpitations, Denies dyspnea and Denies dyspnea on exertion Respiratory: Respiratory: Denies cough, Denies dyspnea and Denies dyspnea on exertion Gastrointestinal: Gastrointestinal: Denies constipation, Denies diarrhea, Denies nausea and Denies vomiting Genitourinary: Genitourinary: Reports urinary frequency, Denies dysuria and Denies urinary hesitancy Musculoskeletal: Musculoskeletal: Reports joint swelling (Right Hip ) and Reports limited range of motion (Right Hip due to recent surgery ) Neurologic: Denies headache(s) and Reports weakness Endocrine: Endocrine: Denies palpitations Exam Const: General: comfortable and no acute distress Resp: Effort & Inspection: normal respiratory effort Cardio: Rate: regular rate Rhythm: regular rhythm Skin: General skin exam: normal color Other: Incision right hip c/d/i. Surrounding tissue without redness/warmth. Mild swelling consistent with recent surgery. No drainage. Extrem: Right lower extremity: normal to inspection, normal capillary refill, hip/thigh Details: tenderness Location: of the hip (Thigh soft ) Location: laterally and anteriorly, swelling Location: at the hip, abnormal ROM (limited consistent with recent surgery ) Details: pain with active ROM during and pain with passive ROM during and other (Incision c/d/i. ); no deformity and no unusual warmth, knee Details: normal to inspection; no tenderness and no swelling, lower leg (Negative Ny's Sign ) Details: normal to inspection and no edema; no tenderness, ankle (+ankle dorsiflexion/plantarflexion) Details: normal to inspection and no edema; no tenderness, no swelling and no ecchymosis and foot Details: normal capillary refill, toes with normal ROM, vascular exam Details: dorsalis pedis pulse present and motor-sensory exam Details: light-touch normal; no tenderness Objective Data Vital Signs Vital Signs: Vital Signs - 24 hr 11/12/23 14:00 11/12/23 22:00 11/12/23 20:00 Temperature 36.3 C L 36.4 C Pulse Rate 79 82 82 Respiratory Rate 14 16 16 Blood Pressure 103/77 106/75 Pulse Oximetry 100 100 100 Oxygen Delivery Room Air 11/13/23 06:00 Temperature 36.3 C L Pulse Rate 77 Respirato
--- NOTE | 2023-11-13 11:12 | PM.IMPN ---
Progress Note: A&P Assessment and Plan (1) Closed transcervical fracture of right femur: Qualifiers: Encounter type: subsequent encounter Fracture healing: with routine healing Qualified Code(s): S72.031D - Displaced midcervical fracture of right femur, subsequent encounter for closed fracture with routine healing Code(s): S72.031A - Displaced midcervical fracture of right femur, initial encounter for closed fracture Status: Acute (2) Bacteriuria: Code(s): R82.71 - Bacteriuria Status: Acute Assessment and Plan: RESOLVED (3) Hyponatremia: Code(s): E87.1 - Hypo-osmolality and hyponatremia Status: Acute (4) Hypothyroidism: Qualifiers: Hypothyroidism type: unspecified Qualified Code(s): E03.9 - Hypothyroidism, unspecified Code(s): E03.9 - Hypothyroidism, unspecified Status: Acute (5) Moderate protein-calorie malnutrition: Code(s): E44.0 - Moderate protein-calorie malnutrition Status: Acute Plan Closed transcervical fracture of right femur -post-op day 4 -PT/OT -SCD -D/C fole/ 1 episode of retention oxybutynin started and voiding well -Incentive spirometer while awake -Dressing changes daily or when soiled -Pain control -stool softener/laxative as needed -ICE to RT hip Bacteruria-RESOLVED -Pseudomonas aeruginosa -likely contaminated -will treat with Cipro x 5 days -recent Catheter placement hyponatremia-Improving -Likely secondary to dehydration -NA Neuro intacted -IV fluids Moderate protein-calorie malnutrition -Moderate protein calorie malnutrition related to reduced appetite and intake as evidenced by pt report, significant weight loss of -10% x 5 months, and NFPE findings for muscle wasting and subcutaneous fat loss. -encourage protein shakes with each meal -Vitamin D levels WNL Code status: Full code per patient DVT prophylaxis: Lovenox Stress ulcer prophylaxis: Famotidine PT/OT notes: [facility] Disposition: Patient did not met for inpatient rehab CC working on SNF placement Time Spent With Patient Time with patient: less than 15 minutes Subjective Date/time seen: 11/13/23 11:12 Interval history: 11/07: This is an 83-year-old female patient past history hypertension hypothyroidism hearing loss and recent memory changes suggestive [id number] dementia who presents to the hospital after a fall from her couch when she was trying to stand up. She reports that it is not off the ground when she landed she fractured her right hip. Patient denies any other injuries. Laboratory assessment shows mild hyponatremia, urinalysis with 4+ bacteria but no leukocyte esterase and minimal white cells. Will defer to culture. Patient is going to the operating room this afternoon for bipolar hip replacement. Discussed with family that she will likely need SNF care and they are interested in [facility]. 11/08: Patient doing well except anesthesia appears to be exacerbated her dementia symptoms and she has been quite forgetful and making up stories. Patient is participating with therapy and seems to be doing well after hip surgery. Encourage p.o. food and fluids. Discontinue IV fluids. 11/09/2023: Patient up in chair doing well today still has moderate pain with PT/OT to RT hip. Incision dry, clean no bruising and dressing in place. 11/10: Patient up in chair still reporting this am she is having difficulty putting any weight on leg to painful. Patient still no BM will start miralax. Insurance did not approve inpatient rehab working with CC for SNF, Labs WNL and vitals stable. 11/11: Patient sitting on the side of the bed feeling well and working with PT. Still no BM Miralax daily onboard. Patient waiting on placement. 11/12: Patient cheerful and pleasant up in chair still NWB working with PT pain controlled at rest but rates 8/10 with activity. 11/13: No complaints today voiding and workin
[2023-11-13 12:16] VITALS: BP 125/76
[2023-11-13] MEDS: LOSARTAN POTASSIUM 25 MG TABLET PO (12:19)
--- NOTE | 2023-11-13 12:35 | PCNFU ---
Nutrition Follow-Up Complete: Moderate protein calorie malnutrition related to reduced appetite and intake as evidenced by pt report, significant weight loss of -10% x 5 months, and NFPE findings for muscle wasting and subcutaneous fat loss. New nutrition Dx: Increased protein energy needs related to wound healing as evidenced by new finding of deep tissue injury to sacrum Goal: Diet order _ Goal met PO intake greater than 50% of meals and supplements - progressing Pt current nutrition is Regular diet, Ensure Compact BID for additional 220 kcal and 9 g protein. Magic cup nutritional ice cream for additional 290 kcal and 9 g protein each. Nutrition recommendation: Add Noel BID to support wound healing. 90 kcal, 2.5 g protein Last recorded weight is 49 kg. Bowel Motility: No BMs charted so far Labs Reviewed: Alb 2.7, Na 135, Cre 0.6 Meds Noted: Pepcid, Zofran, senna, miralax Skin: Deep tissue injury to sacrum Additional Notes: New wound notification. Pt agreeable to try Noel. Monitor for diet order, intake, wt, labs. Follow up in 3 days.
[2023-11-13] MEDS: BISACODYL 10 MG SUPPOSITORY RECTAL (13:09)
[2023-11-13 14:00] VITALS: BP 126/68; PULSE 80; RESP 18; TEMP 36.6; O2SAT 98
[2023-11-13] MEDS: LACTULOSE 20 GM/30 ML UDC PO (16:28)
[2023-11-13] MEDS: SIMVASTATIN 10 MG TABLET PO (21:01)
[2023-11-13 21:45] VITALS: BP 122/76; PULSE 78; RESP 18; TEMP 37.2; O2SAT 96
[2023-11-14 06:00] VITALS: BP 137/88; PULSE 99; RESP 18; TEMP 36.8; O2SAT 97
[2023-11-14] MEDS: LEVOTHYROXINE SODIUM 25 MCG TABLET PO (06:12)
[2023-11-14] MEDS: LACTULOSE 20 GM/30 ML UDC PO ×2 (06:12→12:39)
[2023-11-14 06:38] LABS: Basophils Absolute Auto 0.1 K/mm3 (0.0-0.1); Basophils Percent Auto 0.7 % (0.2-1.2); Eosinophils Absolute Auto 0.3 K/mm3 (0-0.3); Eosinophils Percent Auto 3.8 % (0-4.4); Hematocrit 40.6 % (37.0-47.0); Hemoglobin 13.1 g/dL (12.0-15.0); Immature Granulocyte Absolute 0.02 K/mm3 (0.00-0.031); Immature Granulocyte Percent A 0.3 % (0-0.5); Lymphocytes Absolute Auto 1.75 K/mm3 (0.9-3.2); Lymphocytes Percent Auto 24.4 % (18.3-44.2); Mean Corpuscular HGB Conc 32.3 g/dl (32-36); Mean Corpuscular Hemoglobin 31.7 pg (26-34); Mean Corpuscular Volume 98.3 fl (80-100); Mean Platelet Volume 9.3 fl (7.4-10.4); Monocytes Absolute Auto 0.8 K/mm3 (0.1-0.6); Monocytes Percent Auto 11.3 % (2.6-8.5); Neutrophils Absolute Auto 4.3 K/mm3 (1.3-6.7); Neutrophils Percent Auto 59.5 % (45.5-73.1); Platelet Count Result 414 k/mm3 (150-375); Red Blood Count 4.13 M/mm3 (4.2-5.4); Red Cell Distribution Width 13.4 % (11.5-14.5); White Blood Count 7.2 K/mm3 (4.5-10.0)
[2023-11-14 07:06] LABS: Alanine Aminotransferase 22 U/L (6-35); Albumin Level 2.9 g/dL (3.5-5.1); Alkaline Phosphatase 80 U/L (38-126); Anion Gap 1 mmol/L (8-16); Aspartate Amino Transferase 28 U/L (14-36); Bilirubin,Total 1.1 mg/dL (0.2-1.3); Blood Urea Nitrogen 11 mg/dL (7-17); Calcium 9.7 mg/dL (8.4-10.2); Carbon Dioxide 30 mmol/L (22-30); Chloride 103 mmol/L (98-107); Estimated CRCL calculation 46 ml/min; Estimated Glomerular Filt Rate > 60; Glucose 104 mg/dL (65-110); Magnesium 2.1 mg/dL (1.6-2.3); Potassium 3.9 mmol/L (3.4-5.0); Sodium 134 mmol/L (137-145)
[2023-11-14] MEDS: DULoxetine HCL 30 MG CAPSULE.DR PO (08:37)
[2023-11-14] MEDS: SENNA/DOCUSATE SODIUM TABLET 2 TAB PO ×2 (08:37→16:43)
[2023-11-14] MEDS: oxyBUTYnin CHLORIDE 5 MG TABLET PO (08:37)
[2023-11-14] MEDS: polyethylene glycoL 3350 17 GM POWD.PACK PO (08:38)
[2023-11-14] MEDS: LOSARTAN POTASSIUM 25 MG TABLET PO (08:38)
[2023-11-14] MEDS: FAMOTIDINE 20 MG TABLET PO (08:38)
[2023-11-14] MEDS: CIPROFLOXACIN 500 MG TAB PO (08:38)
[2023-11-14] MEDS: DORZOLAMIDE/TIMOLOL OPHTH SOL 10 ML BOTTLE 1 DROP EACH EYE (08:38)
[2023-11-14 08:40] VITALS: BP 107/76; PULSE 82; O2SAT 98
[2023-11-14] MEDS: ACETAMINOPHEN 325 MG TABLET 650 MG PO ×2 (08:43→14:16)
[2023-11-14] MEDS: ENOXAPARIN 30 MG/0.3 ML SYRINGE SUB-Q (08:45)
--- NOTE | 2023-11-14 09:23 | PM.PNORT ---
Progress Note: A&P Assessment and Plan (1) Closed transcervical fracture of right femur: Qualifiers: Encounter type: subsequent encounter Fracture healing: with routine healing Qualified Code(s): S72.031D - Displaced midcervical fracture of right femur, subsequent encounter for closed fracture with routine healing Code(s): S72.031A - Displaced midcervical fracture of right femur, initial encounter for closed fracture Status: Acute Assessment and Plan: POD #7: CRPP RIGHT HIP Continue PT/OT. NWB. Walker. HIGH FALL RISK. Continue pain control. Ice Hip. Protect skin. DVT prophylaxis with Lovenox. SCDs. Incentive Spirometry Use reviewed. Monitor Dressing. Change prior to discharge. Bowel Regimen. BM yesterday. Urinary retention requiring reinsertion of Espinoza catheter. Dispo: [facility] vs. SNF vs. Home Health pending progress with PT/OT, insurance authorization and medical stability. Appeal pending. Follow up arranged. (2) Bacteriuria: Code(s): R82.71 - Bacteriuria Status: Acute Assessment and Plan: UA from 11/07 with culture results of Pseudomonas aeruginosa. Patient is on Cipro. Follow up UA negative. Patient with urinary retention. Urine with sediment and dark in nature in espinoza catheter. Patient currently on Ditropan. Urology consulted. (3) Urinary retention: Code(s): R33.9 - Retention of urine, unspecified Status: Acute Assessment and Plan: Patient is currently on Ditropan. She has had urinary retention postoperatively. Requiring straight cath and now with reinsertion of espinoza catheter after bladder scan with 1100 mL on 11/13. Urology consulted for further recommendations and possible medication changes. Appreciate recommendations. Plan Reviewed history, exam, radiographs and current labs with attending MD and covering surgeon, Dr. Manning, who agrees with current plan as indicated above. No further recommendations from Dr. Manning at this time. Subjective Subjective Date/Time Seen: 11/14/23 09:23 Post Op day: 7 Principal diagnosis: Right hip fracture Interval history: POD #7: CRPP Right Hip Patient working well with PT/OT. Awaiting placement. Still with difficulty maintaining NWB RLE. Review of Systems Review of Systems: ROS unobtainable: Yes unobtainable due to mental status Exam Const: General: comfortable and no acute distress Resp: Effort & Inspection: normal respiratory effort Cardio: Rate: regular rate Rhythm: regular rhythm Urinary Catheter: Urinary Catheter: patent and draining, urine cloudy and urine dark Skin: General skin exam: normal color Other: Incision right hip c/d/i. Surrounding tissue without redness/warmth. Mild swelling consistent with recent surgery. No drainage. Extrem: Right lower extremity: normal to inspection, normal capillary refill, hip/thigh Details: tenderness Location: of the hip (Thigh soft ) Location: laterally and anteriorly, swelling Location: at the hip, abnormal ROM (limited consistent with recent surgery ) Details: pain with active ROM during and pain with passive ROM during and other (Incision c/d/i. ); no deformity and no unusual warmth, knee Details: normal to inspection; no tenderness and no swelling, lower leg (Negative Ny's Sign ) Details: normal to inspection and no edema; no tenderness, ankle (+ankle dorsiflexion/plantarflexion) Details: normal to inspection and no edema; no tenderness, no swelling and no ecchymosis and foot Details: normal capillary refill, toes with normal ROM, vascular exam Details: dorsalis pedis pulse present and motor-sensory exam Details: light-touch normal; no tenderness Objective Data Vital Signs Vital Signs: Vital Signs - 24 hr 11/13/23 12:16 11/13/23 14:00 11/13/23 21:45 Temperature 36.6 C 37.2 C Pulse Rate 80 78 Respiratory Rate 18 18 Blood Pressure 125/76 126/68 122/76 Pulse Oximetry 98 96 11/14/23 06:00 Temperature 36.8 C Pulse Rate 99
--- NOTE | 2023-11-14 12:11 | PM.IMPN ---
Progress Note: A&P Assessment and Plan (1) Closed transcervical fracture of right femur: Qualifiers: Encounter type: subsequent encounter Fracture healing: with routine healing Qualified Code(s): S72.031D - Displaced midcervical fracture of right femur, subsequent encounter for closed fracture with routine healing Code(s): S72.031A - Displaced midcervical fracture of right femur, initial encounter for closed fracture Status: Acute (2) Bacteriuria: Code(s): R82.71 - Bacteriuria Status: Acute Assessment and Plan: RESOLVED (3) Hyponatremia: Code(s): E87.1 - Hypo-osmolality and hyponatremia Status: Acute (4) Hypothyroidism: Qualifiers: Hypothyroidism type: unspecified Qualified Code(s): E03.9 - Hypothyroidism, unspecified Code(s): E03.9 - Hypothyroidism, unspecified Status: Acute (5) Moderate protein-calorie malnutrition: Code(s): E44.0 - Moderate protein-calorie malnutrition Status: Acute (6) Urinary retention: Code(s): R33.9 - Retention of urine, unspecified Status: Acute Plan Closed transcervical fracture of right femur -post-op day 4 -PT/OT -SCD -D/C fole/ 1 episode of retention oxybutynin started and voiding well -Incentive spirometer while awake -Dressing changes daily or when soiled -Pain control -stool softener/laxative as needed -ICE to RT hip Urinary Retention -previous HX -Re-insertion of espinoza -oxybutinin switched to flomax -hadn't had a BM for 7 days/BM 11/14/2023 my be cause can attempt bladder trials since BM -Orthopedics consulted urology Bacteruria-RESOLVED -Pseudomonas aeruginosa -likely contaminated -will treat with Cipro x 5 days -recent Catheter placement hyponatremia-Improving -Likely secondary to dehydration -NA Neuro intacted -Encourage oral hydration Moderate protein-calorie malnutrition -Moderate protein calorie malnutrition related to reduced appetite and intake as evidenced by pt report, significant weight loss of -10% x 5 months, and NFPE findings for muscle wasting and subcutaneous fat loss. -encourage protein shakes with each meal -Vitamin D levels WNL Code status: Full code per patient DVT prophylaxis: Lovenox Stress ulcer prophylaxis: Famotidine PT/OT notes: [facility] Disposition: Patient did not met for inpatient rehab CC working on SNF placement Dictation performed by [employer] direct speech recognition software, therefore insurance sales manager variants and typographical errors may occur. Time Spent With Patient Time with patient: 15 - 25 minutes Subjective Date/time seen: 11/14/23 12:11 Interval history: 11/07: This is an 83-year-old female patient past history hypertension hypothyroidism hearing loss and recent memory changes suggestive [id number] dementia who presents to the hospital after a fall from her couch when she was trying to stand up. She reports that it is not off the ground when she landed she fractured her right hip. Patient denies any other injuries. Laboratory assessment shows mild hyponatremia, urinalysis with 4+ bacteria but no leukocyte esterase and minimal white cells. Will defer to culture. Patient is going to the operating room this afternoon for bipolar hip replacement. Discussed with family that she will likely need SNF care and they are interested in [facility]. 11/08: Patient doing well except anesthesia appears to be exacerbated her dementia symptoms and she has been quite forgetful and making up stories. Patient is participating with therapy and seems to be doing well after hip surgery. Encourage p.o. food and fluids. Discontinue IV fluids. 11/09/2023: Patient up in chair doing well today still has moderate pain with PT/OT to RT hip. Incision dry, clean no bruising and dressing in place. 11/10: Patient up in chair still reporting this am she is having difficulty putting any weight on leg to pain
[2023-11-14] MEDS: TAMSULOSIN HCL 0.4 MG CAPSULE PO (12:39)
[2023-11-14 14:00] VITALS: BP 135/70; PULSE 68; RESP 18; TEMP 36.5; O2SAT 99
--- NOTE | 2023-11-14 14:29 | WPDURCON ---
Assessment and Plan Assessment and plan (1) Urinary retention: Code(s): R33.9 - Retention of urine, unspecified Status: Acute Assessment and Plan: Continue with Peralta catheter until more ambulatory. Once she is able to walk at least even with a walker will try another voiding trial. Hopefully this can be accomplished in the next 2-3 days. Urology Consult Note HPI Date Seen: 11/14/23 Time Seen: 14:29 Requesting Physician: Salty Fenton MD Primary Care Provider: Efrem Fu, DO Consult Narrative Reason for consult: Urinary retention Narrative: Triny Card is a 83 year old female who is status post percutaneous pinning of a right femoral neck fracture. Patient still is not very mobile and has had difficulty voiding on her own. She has failed the voiding trial. She denies any prior history of this problem. Review of Systems Review of Systems: All systems reviewed & are unremarkable except as noted in HPI and below PMFSH Past Medical History Medical History Arthritis Arthritis of hand, degenerative Digital mucous cyst of finger of right hand Fracture of wrist Lt wrist DOI 02/18/23 Hearing loss Hx of fracture of wrist Hyperlipidemia Hypertension Hypothyroidism Osteoporosis Trochanteric bursitis of left hip Urinary retention Surgical History Surgical History History of cataract extraction History of colonoscopy History of nasal septoplasty History of surgery on right wrist (05/2007) Close reduction and percutaneous pinning of right distal radius fracture. Family History Family History Other Family history of malignant neoplasm Social History Social History Social History: Surrogate medical decision maker: Edwin Card, spouse. Code status: Full code. Smoking status: Never smoker Alcohol intake: current Drinks per week: 1 Substance use: never Substance use type: does not use Do You Feel Safe in your Home?: Yes Lack of Transportation: No Lack of Food: Never True Current Housing: I Have Housing Concerned About Future Housing: No Difficulty Paying Gas/Electric Bills: No Difficulty Paying for Meds: No Currently Unemployed: No Education: Bachelor's Degree Difficulty w/ Childcare or Family Care: No Occupation/Education: retired Spiritual care concerns: No Meds Home Medications and Allergies Home Medications Medication Instructions Recorded Confirmed Type dorzolamide 22.3 mg-timolol 6.8 1 drp EACH EYE BID 11/06/23 11/06/23 History mg/mL eye drops duloxetine 30 mg capsule,delayed 30 mg PO DAILY 11/06/23 11/06/23 History release levothyroxine 25 mcg tablet 25 mcg PO DAILY 11/06/23 11/06/23 History losartan 25 mg tablet 25 mg PO DAILY 11/06/23 11/06/23 History simvastatin 10 mg tablet 10 mg PO HS 11/06/23 11/06/23 History hydrocodone 7.5 mg-acetaminophen 1 tablet PO Q4-6H PRN pain #40 tabs 11/10/23 Rx 325 mg tablet Allergies Allergy/AdvReac Type Severity Reaction Status Date / Time Sulfa (Sulfonamide Allergy Unknown Unknown Verified 11/07/23 17:12 Antibiotics) Vital Signs Vital Signs - 24 hr 11/13/23 21:45 11/14/23 06:00 11/14/23 08:40 Temperature 37.2 C 36.8 C Pulse Rate 78 99 Respiratory Rate 18 18 Blood Pressure 122/76 137/88 Pulse Oximetry 96 97 Oxygen Delivery Room Air 11/14/23 08:40 Temperature Pulse Rate 82 Respiratory Rate Blood Pressure 107/76 Pulse Oximetry 98 Oxygen Delivery Exam Const: General: cooperative and comfortable Resp: Effort & Inspection: normal respiratory effort Cardio: Rate: regular rate Results Labs 11/14/23 06:21 11/14/23 06:21 Labs: Short CBC 11/14/23 Rang
--- NOTE | 2023-11-14 15:41 | PM.DS ---
DS: Admitting Diagnosis Discharge Date 11/14/2023 Admitting Diagnosis RT hip fracture DS: Discharge Diagnosis Discharge Diagnosis (1) Closed transcervical fracture of right femur: Qualifiers: Encounter type: subsequent encounter Fracture healing: with routine healing Qualified Code(s): S72.031D - Displaced midcervical fracture of right femur, subsequent encounter for closed fracture with routine healing Code(s): S72.031A - Displaced midcervical fracture of right femur, initial encounter for closed fracture Status: Acute (2) Bacteriuria: Code(s): R82.71 - Bacteriuria Status: Acute Assessment and Plan: RESOLVED (3) Hyponatremia: Code(s): E87.1 - Hypo-osmolality and hyponatremia Status: Acute (4) Hypothyroidism: Qualifiers: Hypothyroidism type: unspecified Qualified Code(s): E03.9 - Hypothyroidism, unspecified Code(s): E03.9 - Hypothyroidism, unspecified Status: Acute (5) Moderate protein-calorie malnutrition: Code(s): E44.0 - Moderate protein-calorie malnutrition Status: Acute (6) Urinary retention: Code(s): R33.9 - Retention of urine, unspecified Status: Acute Plan Closed transcervical fracture of right femur -PT/OT -SCD -Incentive spirometer while awake -Dressing changes daily or when soiled -Pain control -stool softener/laxative as needed -ICE to RT hip Urinary Retention -previous HX -Re-insertion of espinoza -Flomax -Bladder trial 3 days Bacteruria-RESOLVED Moderate protein-calorie malnutrition -Moderate protein calorie malnutrition related to reduced appetite and intake as evidenced by pt report, significant weight loss of -10% x 5 months, and NFPE findings for muscle wasting and subcutaneous fat loss. -encourage protein shakes with each meal -Vitamin D levels WNL DS: Summary Hospital Course Hospital Course: Chief Complaint: Right hip pain after fall. Narrative: This is a very pleasant 83-year-old female with hypertension, hyperlipidemia, and hypothyroidism who presented to the emergency department via EMS for evaluation of right hip pain after a fall. The patient provides the following history. She reports feeling a bit off balance when she attempted to get up from the couch and she fell down onto her buttocks with immediate pain in her right hip. She was unable to get herself up due to the pain. Imaging showed a transcervical fracture of the proximal right femur and she is being admitted in this setting for surgical correction. At the time my evaluation she describes a hard, aching pain rated 8/10. She did not sustain any other injuries in the fall and denies head trauma and loss of consciousness. She does not recall feeling lightheaded or dizzy prior to the fall and denies vertigo, focal weakness, and paresthesias. Interval history: 11/07:? This is an 83-year-old female patient past history hypertension hypothyroidism hearing loss and recent memory changes suggestive [id number] dementia who presents to the hospital after a fall from her couch when she was trying to stand up.? She reports that it is not off the ground when she landed she fractured her right hip.? Patient denies any other injuries.? Laboratory assessment shows mild hyponatremia, urinalysis with 4+ bacteria but no leukocyte esterase and minimal white cells.? Will defer to culture.? Patient is going to the operating room this afternoon for bipolar hip replacement.? Discussed with family that she will likely need SNF care and they are interested in [facility]. 11/08:? Patient doing well except anesthesia appears to be exacerbated her dementia symptoms and she has been quite forgetful and making up stories.? Patient is participating with therapy and seems to be doing well after hip surgery.? Encourage p.o. food and fluids.? Discontinue IV fluids. 11/09/2023:??Patient up in chair doing well today still has moderate pain w
== END 2023-11-14 18:25 | disposition swing bed (61) | DRG 481 ==
LOC: ANHED 15:00 → ANH3MEDSUR 18:00
PROVIDERS: Internal Medicine; Nurse Practitioner; Orthopaedic Surgery; Physician Assistant; Admitting Provider Internal Medicine; Emergency Provider Emergency Medicine; PCP Student in an Organized Health Care Education/Training Program; Visit Provider Nurse Practitioner Family
PROC: 0QS634Z Reposition Right Upper Femur with Internal Fixation Device, Percutaneous Approach (ICD-10-PCS; principal; 2023-11-07 16:00)
DX: S72.031A Displaced midcervical fracture of right femur, initial encounter for closed fracture (principal); E44.0 Moderate protein-calorie malnutrition; E87.1 Hypo-osmolality and hyponatremia; Z68.1 Body mass index [BMI] 19.9 or less, adult; R82.71 Bacteriuria; B96.5 Pseudomonas (aeruginosa) (mallei) (pseudomallei) as the cause of diseases classified elsewhere; E03.9 Hypothyroidism, unspecified; R33.9 Retention of urine, unspecified; E78.5 Hyperlipidemia, unspecified; E86.0 Dehydration; F03.90 Unspecified dementia, unspecified severity, without behavioral disturbance, psychotic disturbance, mood disturbance, and anxiety; M19.049 Primary osteoarthritis, unspecified hand; N99.89 Other postprocedural complications and disorders of genitourinary system; R33.8 Other retention of urine; I10 Essential (primary) hypertension; M81.0 Age-related osteoporosis without current pathological fracture; M70.62 Trochanteric bursitis, left hip; W08.XXXA Fall from other furniture, initial encounter; Z98.49 Cataract extraction status, unspecified eye
CPT/HCPCS: 36415; 70450; 71045; 72125; 73502; 73700; 80048; 80053; 81001; 81003; 82306; 83735; 84443; 85025; 85027; 85610; 85730; 87077; 87086; 87088; 87186; 96361; 96374; 96376; 97110; 97116; 97161; 97165; 97530; 97535; 99199; 99285; A9270; C1713; G0378; J0171; J0690; J1100; J1650; J1885; J2270; J2371; J2405; J2704; J2795; J3010; J7030; J7120

== ENCOUNTER 2023-11-14 18:51 | Inpatient (IN) | payer MEDICARE, SELFPAY ==
--- NOTE | 2023-11-14 19:20 | ADMGEN ---
This patient, Triny Card, was admitted to 2nd Floor Room 210-1. Patient/family oriented to hospital policies and general routines including ID bracelet, bed and alarms, pain management, procedures, bathroom and other care routines, personal items, smoking policy, room service/diet, and visiting hours. Information on how to activate the Rapid Response Team has been discussed. Patient/Family are encouraged to report perceived risks to care and to ask questions if they do not understand what they are told or what they should do.
[2023-11-14 19:51] VITALS: BMI 16.7
[2023-11-14 20:00] VITALS: PULSE 76; RESP 16; O2SAT 97
[2023-11-14 22:01] VITALS: PULSE 68; RESP 16; O2SAT 97
--- NOTE | 2023-11-14 22:09 | PM.IMHP ---
H&P: HPI History of Present Illness Date/Time: 11/14/23 22:09 Chief Complaint: Right hip fracture s/p closed reduction percutaneous pinning of right hip Fall Narrative: This is an 83 year old female with a significant past medical history of hyperlipidemia, hypertension, hypothyroidism, osteoporosis, dementia, arthritis, and urinary retention that presented to [facility] for swing bed program. Patient reported that she was getting up from her couch, lost her balance and fell down on her buttocks. She immediately felt pain in her right hip and had trouble getting up. She then presented to [facility]. She had imaging showing fracture of the proximal femur. Orthopedic surgery was consulted and patient was taken to the OR on 11/07/23 where she had a closed reduction percutaneous pinning of the right hip. Post surgery she had issues with urinary retention and had to have espinoza placed again. She was started on Flomax and Urology was consulted. She was at [facility] and worked with PT there. She also had issues with constipation which was thought to be the cause of her urinary retention. She received Lactulose and had her last BM today. On examination today patient is alert and oriented x2, lying in the bed. VSS, she is afebrile, currently on room air. She is [place] and wears hearing aids. She denies any fever, chills, nausea, diarrhea, vomiting, abdominal pain, chest pain or shortness of breath. She states that her pain is well controlled. She will need to have a voiding trial in the next couple of days. Currently still has espinoza in place for the urinary retention. She will need to follow up with Urology post swing bed program. Review of Systems Review of Systems: All systems reviewed & are unremarkable except as noted in HPI and below Constitutional: Constitutional: Reports as per HPI and Reports no additional constitutional complaints Eyes: Eyes: Reports as per HPI and Reports no additional eye complaints ENT: Reports system reviewed and no additional complaints, except as documented and Reports as per HPI Cardiovascular: Cardiovascular: Reports as per HPI and Reports no additional cardiovascular complaints Respiratory: Respiratory: Reports as per HPI and Reports no additional respiratory complaints Gastrointestinal: Gastrointestinal: Reports as per HPI and Reports no additional gastrointestinal complaints Genitourinary: Genitourinary: Reports no additional female genitourinary complaints and Reports as per HPI Musculoskeletal: Musculoskeletal: Reports no additional musculoskeletal complaints and Reports as per HPI Integumentary/Breasts: Skin/Breast: Reports system reviewed and no additional complaints, except as docu and Reports as per HPI Neurologic: Reports system reviewed and no additional complaints, except as documented and Reports as per HPI Psychiatric: Psychiatric: Reports no additional psychiatric complaints and Reports behavioral changes [facility] Past Medical History Medical History Arthritis Arthritis of hand, degenerative Digital mucous cyst of finger of right hand Fracture of wrist Lt wrist DOI 02/18/23 Hearing loss Hx of fracture of wrist Hyperlipidemia Hypertension Hypothyroidism Osteoporosis Trochanteric bursitis of left hip Urinary retention Surgical History Surgical History History of cataract extraction History of colonoscopy History of nasal septoplasty History of surgery on right wrist (05/2007) Close reduction and percutaneous pinning of right distal radius fracture. Family History Family History Other Family history of malignant neoplasm Social History Social History Social History: Surrogate medical decision maker: Edwin Card, spouse. Co
[2023-11-14 23:13] LABS: Estimated CRCL calculation 39 ml/min; Estimated Glomerular Filt Rate > 60
[2023-11-15] VITALS: BP 127/70; PULSE 75; RESP 16; TEMP 36.5; O2SAT 97
[2023-11-15 05:24] LABS: Basophils Absolute Auto 0.04 K/mm3 (0.00-0.10); Basophils Percent Auto 0.7 % (0.0-1.0); Eosinophils Absolute Auto 0.27 K/mm3 (0.02-0.50); Eosinophils Percent Auto 4.5 % (1.0-6.0); Hematocrit 37.4 % (35.0-42.0); Hemoglobin 12.3 g/dL (11.7-13.8); Immature Granulocyte Absolute 0.03 K/mm3 (0.00-0.00); Immature Granulocyte Percent A 0.5 % (0.0-0.0); Lymphocytes Absolute Auto 1.56 K/mm3 (1.10-4.50); Lymphocytes Percent Auto 26.1 % (18.0-42.0); Mean Corpuscular HGB Conc 32.9 g/dL (32.0-36.0); Mean Corpuscular Hemoglobin 31.5 pg (27.0-31.0); Mean Corpuscular Volume 95.7 fL (78.0-102.0); Mean Platelet Volume 9.3 fl (9.2-11.8); Monocytes Absolute Auto 0.78 K/mm3 (0.10-0.90); Neutrophils Absolute Auto 3.3 K/mm3 (1.7-7.2); Neutrophils Percent Auto 55.2 % (50.0-70.0); Platelet Count Result 398 K/mm3 (150-420); Red Blood Count 3.91 M/mm3 (4.20-5.40); Red Cell Distribution Width 13.2 % (11.6-14.4)
[2023-11-15 05:44] LABS: Alanine Aminotransferase 26 U/L (14-59); Albumin Level 2.1 g/dL (3.4-5.0); Alkaline Phosphatase 74 U/L (46-116); Anion Gap 5 mmol/L (8-16); Aspartate Amino Transferase 20 U/L (15-37); Bilirubin,Total 0.7 mg/dL (0.00-1.00); Blood Urea Nitrogen 13 mg/dL (7-18); Calcium 9.2 mg/dL (8.5-10.1); Carbon Dioxide 32 mmol/L (21-32); Chloride 104 mmol/L (98-108); Estimated CRCL calculation 44 ml/min; Estimated Glomerular Filt Rate > 60; Glucose 102 mg/dL (70-99); Magnesium 1.9 mg/dL (1.8-2.4); Osmolality Calculated 292 mOsm/kg (285-295); Potassium 3.5 mmol/L (3.5-5.1); Sodium 141 mmol/L (136-145); Total Protein 5.3 g/dL (6.4-8.2)
[2023-11-15] MEDS: LEVOTHYROXINE SODIUM 25 MCG TABLET PO (06:22)
[2023-11-15 08:00] VITALS: BP 117/65; PULSE 82; RESP 18; TEMP 36.9; O2SAT 98
[2023-11-15] MEDS: DULoxetine HCL 30 MG CAPSULE.DR PO (09:30)
[2023-11-15] MEDS: ENOXAPARIN 40 MG/0.4 ML SYRINGE SUB-Q (09:30)
[2023-11-15] MEDS: LOSARTAN POTASSIUM 25 MG TABLET PO (09:30)
[2023-11-15] MEDS: TAMSULOSIN HCL 0.4 MG CAPSULE PO (09:30)
[2023-11-15] MEDS: FAMOTIDINE 20 MG TABLET PO ×2 (09:30→21:14)
--- NOTE | 2023-11-15 09:32 | PHAR ---
VERIFIED PT.'S OWN SUPPLY OF TIMOLOL/DORZOLAMIDE OPHTHALMIC, 1 DROP EACH EYE BID.
[2023-11-15 16:00] VITALS: BP 120/68; PULSE 78; RESP 18; TEMP 37; O2SAT 96
[2023-11-15] MEDS: SIMVASTATIN 10 MG TABLET PO (21:14)
[2023-11-15] MEDS: DOCUSATE SODIUM 100 MG CAPSULE PO (21:14)
[2023-11-16] VITALS: BP 102/58; PULSE 85; RESP 16; TEMP 36.7; O2SAT 97
[2023-11-16] MEDS: LEVOTHYROXINE SODIUM 25 MCG TABLET PO (06:01)
[2023-11-16 08:00] VITALS: BP 93/45; PULSE 91; RESP 18; TEMP 36.8; O2SAT 98
[2023-11-16] MEDS: ENOXAPARIN 40 MG/0.4 ML SYRINGE SUB-Q (10:02)
[2023-11-16] MEDS: DULoxetine HCL 30 MG CAPSULE.DR PO (10:03)
[2023-11-16] MEDS: TAMSULOSIN HCL 0.4 MG CAPSULE PO (10:03)
[2023-11-16] MEDS: FAMOTIDINE 20 MG TABLET PO ×2 (10:03→20:55)
[2023-11-16] MEDS: LOSARTAN POTASSIUM 25 MG TABLET PO (10:03)
[2023-11-16 16:00] VITALS: BP 100/55; PULSE 100; RESP 17; TEMP 36.9; O2SAT 94
[2023-11-16] MEDS: ACETAMINOPHEN 325 MG TABLET 650 MG PO (20:55)
[2023-11-16] MEDS: SIMVASTATIN 10 MG TABLET PO (20:55)
[2023-11-17] VITALS: BP 98/54; PULSE 81; RESP 16; TEMP 36.2; O2SAT 95
[2023-11-17] MEDS: LEVOTHYROXINE SODIUM 25 MCG TABLET PO (06:21)
[2023-11-17 08:00] VITALS: BP 102/61; PULSE 90; RESP 16; TEMP 36.7; O2SAT 100
[2023-11-17] MEDS: ENOXAPARIN 40 MG/0.4 ML SYRINGE SUB-Q (10:26)
[2023-11-17] MEDS: LOSARTAN POTASSIUM 25 MG TABLET PO (10:26)
[2023-11-17] MEDS: FAMOTIDINE 20 MG TABLET PO ×2 (10:26→20:55)
[2023-11-17] MEDS: DULoxetine HCL 30 MG CAPSULE.DR PO (10:26)
[2023-11-17] MEDS: TAMSULOSIN HCL 0.4 MG CAPSULE PO (10:26)
--- NOTE | 2023-11-17 12:45 | PC.NURSE ---
Pt has espinoza catheter in place that was inserted at previous hospital for retention. Per Romeo, internet merchant the catheter has been removed at this time and we will monitor for urine output over the next 8 hours. If no or little output, patient will be bladder scanned and espinoza replaced for urine >400.
[2023-11-17 16:00] VITALS: BP 97/55; PULSE 80; RESP 17; TEMP 36.1; O2SAT 96
[2023-11-17 19:47] VITALS: PULSE 80; RESP 17; O2SAT 96
[2023-11-17] MEDS: SIMVASTATIN 10 MG TABLET PO (20:55)
--- NOTE | 2023-11-17 21:23 | PC.NURSE ---
Notified Horacio Scott, PUBLIC RELATIONS OFFICER/Hospitalist, that bladder scan result was 164. PUBLIC RELATIONS OFFICER gave order to leave espinoza cath out at this time. Monitor for increased/frequent urination or c/o abd pain. If patient offers c/o may put espinoza cath back in.
--- NOTE | 2023-11-17 21:35 | PC.NURSE ---
Bladder scan showed 164 residual
[2023-11-18] VITALS: BP 112/55; PULSE 97; RESP 16; TEMP 36.6; O2SAT 97
[2023-11-18] MEDS: LEVOTHYROXINE SODIUM 25 MCG TABLET PO (06:25)
[2023-11-18 08:00] VITALS: BP 119/79; PULSE 89; RESP 18; TEMP 36.7; O2SAT 95
[2023-11-18] MEDS: LOSARTAN POTASSIUM 25 MG TABLET PO (09:16)
[2023-11-18] MEDS: TAMSULOSIN HCL 0.4 MG CAPSULE PO (09:16)
[2023-11-18] MEDS: ENOXAPARIN 40 MG/0.4 ML SYRINGE SUB-Q (09:16)
[2023-11-18] MEDS: DULoxetine HCL 30 MG CAPSULE.DR PO (09:16)
[2023-11-18] MEDS: FAMOTIDINE 20 MG TABLET PO ×2 (09:16→20:28)
[2023-11-18 16:00] VITALS: BP 92/56; PULSE 86; RESP 18; TEMP 36.8; O2SAT 96
--- NOTE | 2023-11-18 18:44 | PC.NURSE ---
report to anthony camacho. all questions answered
[2023-11-18 20:00] VITALS: PULSE 86; RESP 18; O2SAT 96
[2023-11-18] MEDS: SIMVASTATIN 10 MG TABLET PO (20:28)
[2023-11-19] VITALS: BP 98/53; PULSE 92; RESP 16; TEMP 36.8; O2SAT 97
[2023-11-19] MEDS: LEVOTHYROXINE SODIUM 25 MCG TABLET PO (05:38)
--- NOTE | 2023-11-19 06:31 | PC.NURSE ---
Patient was in bed, dozing while she watched TV. Patient is non-weight bearing to her right LE. Surgical site dressing is C/D/I. Patient transfers via adiel [facility] with an assist of 1 and a gait belt. Patient is compliant with being non-weight bearing with verbal cues. Patient is A/O X 2. Patient can be pleasantly confused. Patient is now able to void without the espinoza, and has urinated twice, once with a BM. Patient was continent. Patient's vitals are WNL. Patient denies pain, and would not take any PRN medications. Patient slept very well.
[2023-11-19 08:00] VITALS: BP 133/81; PULSE 85; RESP 18; TEMP 36.5; O2SAT 97
[2023-11-19] MEDS: LOSARTAN POTASSIUM 25 MG TABLET PO (09:06)
[2023-11-19] MEDS: DULoxetine HCL 30 MG CAPSULE.DR PO (09:06)
[2023-11-19] MEDS: FAMOTIDINE 20 MG TABLET PO ×2 (09:06→21:19)
[2023-11-19] MEDS: ENOXAPARIN 40 MG/0.4 ML SYRINGE SUB-Q (09:06)
[2023-11-19] MEDS: TAMSULOSIN HCL 0.4 MG CAPSULE PO (09:06)
[2023-11-19 16:00] VITALS: BP 121/72; PULSE 88; RESP 17; TEMP 37; O2SAT 96
[2023-11-19 20:00] VITALS: PULSE 88; RESP 17; O2SAT 96
[2023-11-19] MEDS: ACETAMINOPHEN 325 MG TABLET 650 MG PO (21:19)
[2023-11-19] MEDS: SIMVASTATIN 10 MG TABLET PO (21:19)
[2023-11-20] VITALS: BP 93/62; PULSE 94; RESP 16; TEMP 36.8; O2SAT 97
--- NOTE | 2023-11-20 05:39 | PC.NURSE ---
Patient was in bed at the start of the shift. She remains pleasantly confused and A/O X2. Patient took tylenol at HS due to right hip pain; it was effective. Patient slept well, and was only up once to the toilet. Her output was 900 mL. Patient transfers with assist of 1, adiel stedy, and gait belt. She remains non-weight bearing on the right leg. 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 Vitals are WNL except for BP of 93/62, which is consistent with previous measures. Patient slept well all night.
[2023-11-20] MEDS: LEVOTHYROXINE SODIUM 25 MCG TABLET PO (05:58)
[2023-11-20 08:00] VITALS: BP 111/74; PULSE 85; RESP 17; TEMP 36.6; O2SAT 97
[2023-11-20] MEDS: DULoxetine HCL 30 MG CAPSULE.DR PO (09:03)
[2023-11-20] MEDS: TAMSULOSIN HCL 0.4 MG CAPSULE PO (09:04)
[2023-11-20] MEDS: LOSARTAN POTASSIUM 25 MG TABLET PO (09:04)
[2023-11-20] MEDS: FAMOTIDINE 20 MG TABLET PO ×2 (09:04→20:35)
[2023-11-20] MEDS: ENOXAPARIN 40 MG/0.4 ML SYRINGE SUB-Q (09:05)
[2023-11-20 16:00] VITALS: BP 105/60; PULSE 85; RESP 20; TEMP 36.6; O2SAT 98
--- NOTE | 2023-11-20 16:09 | P.PNIM_ITS ---
Progress Note: A&P Assessment and Plan (1) Closed transcervical fracture of right femur: Qualifiers: Encounter type: subsequent encounter Fracture healing: with routine healing Qualified Code(s): S72.031D - Displaced midcervical fracture of right femur, subsequent encounter for closed fracture with routine healing Code(s): S72.031A - Displaced midcervical fracture of right femur, initial encounter for closed fracture Status: Acute Assessment and Plan: * S/P percutaneous pinning of right hip fracture. Surgery was on 11/07/23 * Continue with pain control * Order placed inpatient swing bed program * PT/OT 11/20: [place] to be discontinued and dressing changes to stop on 11/22, Lovenox to continue through 12/05. (2) Urinary retention: Code(s): R33.9 - Retention of urine, unspecified Status: Acute Assessment and Plan: * Peralta catheter in place * Continue flomax * Will need voiding trial in a couple of days * She will also need to follow up with Urology on discharge 11/20: Peralta has been removed and not needed to be reinserted at this point. (3) Fall: Code(s): W19.XXXA - Unspecified fall, initial encounter Status: Acute Assessment and Plan: * Patient sustained a ground level fall resulting in right hip fracture on 11/06/23 * Continue fall precautions * PT/OT ordered (4) Moderate protein-calorie malnutrition: Code(s): E44.0 - Moderate protein-calorie malnutrition Status: Acute Assessment and Plan: * BMI 16.7, 45.6kg * Continue with regular diet, ensure compact BID, Magic cup per Credit Risk Review Officer recommendation * Encourage protein with every meal (5) Hypertension: Code(s): I10 - Essential (primary) hypertension Status: Chronic Assessment and Plan: * Blood pressure ranging 107/76-135/70 * Continue Losartan (6) Hyperlipidemia: Code(s): E78.5 - Hyperlipidemia, unspecified Status: Chronic Assessment and Plan: * Continue simvastatin (7) Hypothyroidism: Qualifiers: Hypothyroidism type: unspecified Qualified Code(s): E03.9 - Hypothyroidism, unspecified Code(s): E03.9 - Hypothyroidism, unspecified Status: Chronic Assessment and Plan: * Continued synthroid Time Spent With Patient Time with patient: 15 - 25 minutes Subjective Date/time seen: 11/20/23 16:09 Review of Systems Review of Systems: All systems reviewed & are unremarkable except as noted in HPI and below Exam Narrative: GENERAL: Nontoxic, no acute distress , pleasant HEAD: Normocephalic, atr aumatic. EYES: PER RLA and EOMI. ENT: ? Mucous membrane s pink and moist, nasal passages are clear, she is [place] and wears hearing aids NECK: Supple , no JVD, trachea midline CHEST: Luis ar to auscultation .? No respiratory distress. No adven titious lung sound s, currently on ro om air. HEART: RR R, Normal S1 and S 2, No murmurs, gal lops, or friction rubs ABDOMEN: Soft , nontender, nondi stended, bowel shea nds normoactive, s he is passing gas EXTREMITIES: R hip surgical incision dressing intact N EURO: Alert and or iented x2-3, no ne uro deficits, plea santly confused PS YCH: Normal mood a nd affect. Interac tive ?
--- NOTE | 2023-11-20 16:09 | PM.IMPN ---
Progress Note: A&P Assessment and Plan (1) Closed transcervical fracture of right femur: Qualifiers: Encounter type: subsequent encounter Fracture healing: with routine healing Qualified Code(s): S72.031D - Displaced midcervical fracture of right femur, subsequent encounter for closed fracture with routine healing Code(s): S72.031A - Displaced midcervical fracture of right femur, initial encounter for closed fracture Status: Acute Assessment and Plan: S/P percutaneous pinning of right hip fracture. Surgery was on 11/07/23 Continue with pain control Order placed inpatient swing bed program PT/OT 11/20: [place] to be discontinued and dressing changes to stop on 11/22, Lovenox to continue through 12/05. (2) Urinary retention: Code(s): R33.9 - Retention of urine, unspecified Status: Acute Assessment and Plan: Peralta catheter in place Continue flomax Will need voiding trial in a couple of days She will also need to follow up with Urology on discharge 11/20: Peralta has been removed and not needed to be reinserted at this point. (3) Fall: Code(s): W19.XXXA - Unspecified fall, initial encounter Status: Acute Assessment and Plan: Patient sustained a ground level fall resulting in right hip fracture on 11/06/23 Continue fall precautions PT/OT ordered (4) Moderate protein-calorie malnutrition: Code(s): E44.0 - Moderate protein-calorie malnutrition Status: Acute Assessment and Plan: BMI 16.7, 45.6kg Continue with regular diet, ensure compact BID, Magic cup per Cemetery Workers Supervisor recommendation Encourage protein with every meal (5) Hypertension: Code(s): I10 - Essential (primary) hypertension Status: Chronic Assessment and Plan: Blood pressure ranging 107/76-135/70 Continue Losartan (6) Hyperlipidemia: Code(s): E78.5 - Hyperlipidemia, unspecified Status: Chronic Assessment and Plan: Continue simvastatin (7) Hypothyroidism: Qualifiers: Hypothyroidism type: unspecified Qualified Code(s): E03.9 - Hypothyroidism, unspecified Code(s): E03.9 - Hypothyroidism, unspecified Status: Chronic Assessment and Plan: Continued synthroid Time Spent With Patient Time with patient: 15 - 25 minutes Subjective Date/time seen: 11/20/23 16:09 Review of Systems Review of Systems: All systems reviewed & are unremarkable except as noted in HPI and below Exam Narrative: GENERAL: Nontoxic, no acute distress , pleasant HEAD: Normocephalic, atr aumatic. EYES: PER RLA and EOMI. ENT: ? Mucous membrane s pink and moist, nasal passages are clear, she is [place] and wears hearing aids NECK: Supple , no JVD, trachea midline CHEST: Luis ar to auscultation .? No respiratory distress. No adven titious lung sound s, currently on ro om air. HEART: RR R, Normal S1 and S 2, No murmurs, gal lops, or friction rubs ABDOMEN: Soft , nontender, nondi stended, bowel shea nds normoactive, s he is passing gas EXTREMITIES: R hip surgical incision dressing intact N EURO: Alert and or iented x2-3, no ne uro deficits, plea santly confused PS YCH: Normal mood a nd affect. Interac tive ? Objective Data Vital Signs Vital Signs: Vital Signs - 24 hr 11/19/23 20:00 11/20/23 00:00 11/20/23 08:00 Temperature 36.8 C Pulse Rate 88 94 85 Respiratory Rate 17 16 17 Blood Pressure 93/62 L Pulse Oximetry 96 97 97 Oxygen Delivery Room Air Room Air Room Air 11/20/23 08:00 Temperature 36.6 C Pulse Rate 85 Respiratory Rate 17 Blood Pressure 111/74 Pulse Oximetry 97 Oxygen Delivery Room Air Intake/Output Intake/Output: Intake & Output 11/17/23 11/18/23 11/19/23 11/20/23 23:59 23:59 23:59 23:59 Intake Total 2090 920 1440 430 Output Total 1550 7638 988 8583 Balance 540 -631 689 -870 Meds/Results Medications: Active Medications Ge
[2023-11-20 20:00] VITALS: PULSE 85; RESP 20; O2SAT 98
[2023-11-20] MEDS: ACETAMINOPHEN 325 MG TABLET 650 MG PO (20:35)
[2023-11-20] MEDS: SIMVASTATIN 10 MG TABLET PO (20:35)
[2023-11-21] VITALS: BP 93/58; PULSE 95; RESP 16; TEMP 37.1; O2SAT 98
[2023-11-21] MEDS: LEVOTHYROXINE SODIUM 25 MCG TABLET PO (05:30)
[2023-11-21 07:45] VITALS: BP 116/72; PULSE 81; RESP 16; TEMP 36.6; O2SAT 97
[2023-11-21] MEDS: DULoxetine HCL 30 MG CAPSULE.DR PO (09:29)
[2023-11-21] MEDS: FAMOTIDINE 20 MG TABLET PO ×2 (09:29→20:08)
[2023-11-21] MEDS: LOSARTAN POTASSIUM 25 MG TABLET PO (09:29)
[2023-11-21] MEDS: TAMSULOSIN HCL 0.4 MG CAPSULE PO (09:29)
[2023-11-21] MEDS: ENOXAPARIN 40 MG/0.4 ML SYRINGE SUB-Q (09:29)
[2023-11-21 16:35] VITALS: BP 124/72; PULSE 90; RESP 16; TEMP 36.6; O2SAT 98
[2023-11-21] MEDS: SIMVASTATIN 10 MG TABLET PO (20:08)
[2023-11-22] VITALS: BP 105/56; PULSE 92; RESP 15; TEMP 36.3; O2SAT 97
[2023-11-22] MEDS: LEVOTHYROXINE SODIUM 25 MCG TABLET PO (06:29)
[2023-11-22] MEDS: ACETAMINOPHEN 325 MG TABLET 650 MG PO ×2 (07:26→20:26)
[2023-11-22 08:00] VITALS: BP 140/86; PULSE 77; RESP 14; TEMP 36.5; O2SAT 100
[2023-11-22] MEDS: ENOXAPARIN 40 MG/0.4 ML SYRINGE SUB-Q (09:51)
[2023-11-22] MEDS: FAMOTIDINE 20 MG TABLET PO ×2 (09:52→20:26)
[2023-11-22] MEDS: TAMSULOSIN HCL 0.4 MG CAPSULE PO (09:52)
[2023-11-22] MEDS: DULoxetine HCL 30 MG CAPSULE.DR PO (09:52)
[2023-11-22] MEDS: LOSARTAN POTASSIUM 25 MG TABLET PO (09:52)
--- NOTE | 2023-11-22 13:40 | PC.NURSE ---
[place] removed from right hip incision. 6 heather removed without difficulty. The incision is well approximated, no drainage noted. 3 steri strips applied and an island dressing. RO
[2023-11-22 16:00] VITALS: BP 103/58; PULSE 86; RESP 14; TEMP 36.1
[2023-11-22] MEDS: SIMVASTATIN 10 MG TABLET PO (20:26)
[2023-11-22 23:57] VITALS: BP 109/63; PULSE 74; RESP 16; TEMP 36.4; O2SAT 98
[2023-11-23 05:14] LABS: Basophils Absolute Auto 0.06 K/mm3 (0.00-0.10); Eosinophils Absolute Auto 0.16 K/mm3 (0.02-0.50); Eosinophils Percent Auto 2.6 % (1.0-6.0); Hematocrit 34.9 % (35.0-42.0); Hemoglobin 11.4 g/dL (11.7-13.8); Immature Granulocyte Absolute 0.03 K/mm3 (0.00-0.00); Immature Granulocyte Percent A 0.5 % (0.0-0.0); Lymphocytes Absolute Auto 2.05 K/mm3 (1.10-4.50); Lymphocytes Percent Auto 33.6 % (18.0-42.0); Mean Corpuscular HGB Conc 32.7 g/dL (32.0-36.0); Mean Corpuscular Hemoglobin 31.4 pg (27.0-31.0); Mean Corpuscular Volume 96.1 fL (78.0-102.0); Mean Platelet Volume 9.2 fl (9.2-11.8); Monocytes Absolute Auto 0.68 K/mm3 (0.10-0.90); Monocytes Percent Auto 11.1 % (2.0-11.0); Neutrophils Absolute Auto 3.1 K/mm3 (1.7-7.2); Neutrophils Percent Auto 51.2 % (50.0-70.0); Platelet Count Result 463 K/mm3 (150-420); Red Blood Count 3.63 M/mm3 (4.20-5.40); White Blood Count 6.1 K/mm3 (4.8-10.8)
[2023-11-23 05:36] LABS: Alanine Aminotransferase 34 U/L (14-59); Albumin Level 2.5 g/dL (3.4-5.0); Alkaline Phosphatase 109 U/L (46-116); Anion Gap 6 mmol/L (8-16); Aspartate Amino Transferase 21 U/L (15-37); Bilirubin,Total 0.5 mg/dL (0.00-1.00); Blood Urea Nitrogen 14 mg/dL (7-18); Calcium 8.4 mg/dL (8.5-10.1); Carbon Dioxide 31 mmol/L (21-32); Chloride 105 mmol/L (98-108); Estimated CRCL calculation 45 ml/min; Estimated Glomerular Filt Rate > 60; Glucose 98 mg/dL (70-99); Osmolality Calculated 294 mOsm/kg (285-295); Sodium 142 mmol/L (136-145); Total Protein 5.4 g/dL (6.4-8.2)
[2023-11-23 05:42] LABS: Magnesium 1.9 mg/dL (1.8-2.4)
[2023-11-23] MEDS: LEVOTHYROXINE SODIUM 25 MCG TABLET PO (06:10)
[2023-11-23 08:00] VITALS: BP 110/70; PULSE 76; RESP 18; TEMP 36.6; O2SAT 98
[2023-11-23] MEDS: ENOXAPARIN 40 MG/0.4 ML SYRINGE SUB-Q (09:39)
[2023-11-23] MEDS: TAMSULOSIN HCL 0.4 MG CAPSULE PO (09:39)
[2023-11-23] MEDS: DULoxetine HCL 30 MG CAPSULE.DR PO (09:40)
[2023-11-23] MEDS: LOSARTAN POTASSIUM 25 MG TABLET PO (09:40)
[2023-11-23] MEDS: FAMOTIDINE 20 MG TABLET PO ×2 (09:40→20:30)
[2023-11-23 16:00] VITALS: BP 94/63; PULSE 84; RESP 18; TEMP 36.7; O2SAT 98
[2023-11-23 20:00] VITALS: PULSE 84; RESP 18; O2SAT 98
[2023-11-23] MEDS: SIMVASTATIN 10 MG TABLET PO (20:30)
[2023-11-24] VITALS: BP 92/61; PULSE 90; RESP 16; TEMP 36.9; O2SAT 97
--- NOTE | 2023-11-24 05:22 | PC.NURSE ---
Patient was sitting in bed, watching TV at the beginning of the shift. She remains pleasantly confused, and cooperative in her care. Patient denies c/o pain, transfers to bedside commode with 1 assist, gait belt, and ww. Patient remains toe touch weight bearing to right lower extremity due to fracture with surgical repair. patient needs occasional verbal cues to remind her of weight bearing status. Patient slept well, and has been continent of urine all night.
[2023-11-24] MEDS: LEVOTHYROXINE SODIUM 25 MCG TABLET PO (05:37)
[2023-11-24 08:00] VITALS: BP 109/71; PULSE 91; RESP 18; TEMP 36.6; O2SAT 100
[2023-11-24] MEDS: ENOXAPARIN 40 MG/0.4 ML SYRINGE SUB-Q (08:48)
[2023-11-24] MEDS: DULoxetine HCL 30 MG CAPSULE.DR PO (08:48)
[2023-11-24] MEDS: TAMSULOSIN HCL 0.4 MG CAPSULE PO (08:48)
[2023-11-24] MEDS: FAMOTIDINE 20 MG TABLET PO ×2 (08:48→21:04)
[2023-11-24] MEDS: LOSARTAN POTASSIUM 25 MG TABLET PO (08:48)
[2023-11-24 16:00] VITALS: BP 95/65; PULSE 85; RESP 18; TEMP 36.5; O2SAT 98
[2023-11-24] MEDS: SIMVASTATIN 10 MG TABLET PO (21:04)
[2023-11-25] VITALS: BP 93/63; PULSE 81; RESP 15; TEMP 36.8; O2SAT 97
[2023-11-25] MEDS: LEVOTHYROXINE SODIUM 25 MCG TABLET PO (05:29)
[2023-11-25 08:00] VITALS: BP 113/48; PULSE 81; RESP 16; TEMP 36.5; O2SAT 96
[2023-11-25] MEDS: ENOXAPARIN 40 MG/0.4 ML SYRINGE SUB-Q (10:04)
[2023-11-25] MEDS: TAMSULOSIN HCL 0.4 MG CAPSULE PO (10:04)
[2023-11-25] MEDS: DULoxetine HCL 30 MG CAPSULE.DR PO (10:04)
[2023-11-25] MEDS: FAMOTIDINE 20 MG TABLET PO ×2 (10:04→21:25)
[2023-11-25] MEDS: LOSARTAN POTASSIUM 25 MG TABLET PO (10:04)
[2023-11-25 16:00] VITALS: BP 99/66; PULSE 84; RESP 17; TEMP 37; O2SAT 96
[2023-11-25] MEDS: SIMVASTATIN 10 MG TABLET PO (21:25)
[2023-11-26] VITALS: BP 104/70; PULSE 88; RESP 15; TEMP 36.4; O2SAT 97
[2023-11-26] MEDS: LEVOTHYROXINE SODIUM 25 MCG TABLET PO (06:27)
[2023-11-26 08:00] VITALS: BP 123/77; PULSE 90; RESP 17; TEMP 36.4; O2SAT 97
[2023-11-26] MEDS: DULoxetine HCL 30 MG CAPSULE.DR PO (09:57)
[2023-11-26] MEDS: ENOXAPARIN 40 MG/0.4 ML SYRINGE SUB-Q (09:57)
[2023-11-26] MEDS: FAMOTIDINE 20 MG TABLET PO ×2 (09:57→21:06)
[2023-11-26] MEDS: TAMSULOSIN HCL 0.4 MG CAPSULE PO (09:57)
[2023-11-26] MEDS: LOSARTAN POTASSIUM 25 MG TABLET PO (09:57)
[2023-11-26 16:00] VITALS: BP 88/58; PULSE 93; RESP 17; TEMP 36.8; O2SAT 97
[2023-11-26] MEDS: SIMVASTATIN 10 MG TABLET PO (21:05)
[2023-11-27] VITALS: BP 94/63; PULSE 81; RESP 19; TEMP 36.6; O2SAT 97
[2023-11-27] MEDS: LEVOTHYROXINE SODIUM 25 MCG TABLET PO (05:43)
--- NOTE | 2023-11-27 07:49 | PM.IMPN ---
Progress Note: A&P Assessment and Plan (1) Closed transcervical fracture of right femur: Qualifiers: Encounter type: subsequent encounter Fracture healing: with routine healing Qualified Code(s): S72.031D - Displaced midcervical fracture of right femur, subsequent encounter for closed fracture with routine healing Code(s): S72.031A - Displaced midcervical fracture of right femur, initial encounter for closed fracture Status: Acute Assessment and Plan: S/P percutaneous pinning of right hip fracture. Surgery was on 11/07/23 Continue with pain control Order placed inpatient swing bed program PT/OT 11/20: [place] to be discontinued and dressing changes to stop on 11/22, Lovenox to continue through 12/05. 11/27: Wound intact, no signs of infection. Patient doing well with reminders of TTWB restriction RLE (2) Fall: Code(s): W19.XXXA - Unspecified fall, initial encounter Status: Acute Assessment and Plan: Patient sustained a ground level fall resulting in right hip fracture on 11/06/23 Continue fall precautions PT/OT ordered (3) Moderate protein-calorie malnutrition: Code(s): E44.0 - Moderate protein-calorie malnutrition Status: Acute Assessment and Plan: BMI 16.7, 45.6kg Continue with regular diet, ensure compact BID, Magic cup per Group Therapist recommendation Encourage protein with every meal 11/27: Minor improvement BMI 16.9 and weight 46.2kg this morning (4) Hypertension: Code(s): I10 - Essential (primary) hypertension Status: Chronic Assessment and Plan: Blood pressure ranging 107/76-135/70 Continue Losartan 11/27: Blood pressure reviewed, noted to be slightly low yesterday, improved today. Will monitor and hold BP meds if needed. (5) Hyperlipidemia: Code(s): E78.5 - Hyperlipidemia, unspecified Status: Chronic Assessment and Plan: Continue simvastatin (6) Hypothyroidism: Qualifiers: Hypothyroidism type: unspecified Qualified Code(s): E03.9 - Hypothyroidism, unspecified Code(s): E03.9 - Hypothyroidism, unspecified Status: Chronic Assessment and Plan: Continued synthroid (7) Urinary retention: Code(s): R33.9 - Retention of urine, unspecified Status: Resolved Assessment and Plan: Peralta catheter in place Continue flomax Will need voiding trial in a couple of days She will also need to follow up with Urology on discharge 11/20: Peralta has been removed and not needed to be reinserted at this point. 11/27: Resolved without recurrence Time Spent With Patient Time with patient: 15 - 25 minutes Subjective Date/time seen: 11/27/23 07:49 Interval history: Patient is doing well with therapy and nursing, using walker with reminders to remain TTWB RLE. Mental status is not completely back to normal pre-fall. Family is wanting to continue therapy at [facility] and they are anticipated to have a bed available today or tomorrow as long as insurance approves continued SNF there. Review of Systems Review of Systems: All systems reviewed & are unremarkable except as noted in HPI and below Exam Narrative: GENERAL: Nontoxic, no acute distress , pleasant HEAD: Normocephalic, atr aumatic. EYES: PER RLA and EOMI. ENT: ? Mucous membrane s pink and moist, nasal passages are clear, she is [place] and wears hearing aids NECK: Supple , no JVD, trachea midline CHEST: Luis ar to auscultation .? HEART: RRR, N ormal S1 and S2, N o murmurs, gallops , or friction rubs ABDOMEN: Soft, no ntender, nondisten ded, bowel sounds normoactive EXTREM ITIES: Right hip t juanpablo to palpation , doing well with TTWB restriction N EURO: Awake, alert , no neuro deficit s, pleasantly conf used with nonsensi stan speech at time s PSYCH: Normal mo od and affect. Int eractive ? Objective Data Vital Signs Vital Signs: Vital Signs
[2023-11-27 08:00] VITALS: BP 123/77; PULSE 89; RESP 20; TEMP 36.5; O2SAT 99
[2023-11-27] MEDS: ENOXAPARIN 40 MG/0.4 ML SYRINGE SUB-Q (09:25)
[2023-11-27] MEDS: TAMSULOSIN HCL 0.4 MG CAPSULE PO (09:25)
[2023-11-27] MEDS: LOSARTAN POTASSIUM 25 MG TABLET PO (09:25)
[2023-11-27] MEDS: FAMOTIDINE 20 MG TABLET PO ×2 (09:25→20:33)
[2023-11-27] MEDS: DULoxetine HCL 30 MG CAPSULE.DR PO (09:25)
[2023-11-27 16:00] VITALS: BP 102/63; PULSE 85; RESP 16; TEMP 36.8; O2SAT 97
[2023-11-27 20:00] VITALS: PULSE 85; RESP 16; O2SAT 97
[2023-11-27] MEDS: SIMVASTATIN 10 MG TABLET PO (20:33)
[2023-11-28] VITALS: BP 96/76; PULSE 90; RESP 16; TEMP 36.8; O2SAT 98
[2023-11-28] MEDS: LEVOTHYROXINE SODIUM 25 MCG TABLET PO (06:27)
[2023-11-28 08:00] VITALS: PULSE 58; RESP 16; TEMP 35.8; O2SAT 92
[2023-11-28] MEDS: ENOXAPARIN 40 MG/0.4 ML SYRINGE SUB-Q (09:41)
[2023-11-28] MEDS: LOSARTAN POTASSIUM 25 MG TABLET PO (09:42)
[2023-11-28] MEDS: TAMSULOSIN HCL 0.4 MG CAPSULE PO (09:42)
[2023-11-28] MEDS: DULoxetine HCL 30 MG CAPSULE.DR PO (09:42)
[2023-11-28] MEDS: FAMOTIDINE 20 MG TABLET PO (09:42)
--- NOTE | 2023-11-28 11:03 | PM.DS ---
DS: Admitting Diagnosis Discharge Date 11/28/2023 Admitting Diagnosis closed transcervical fracture of right femur, urinary retention, fall, HTN, HLD, moderate protein calorie malnutrition, hypothyroidism DS: Discharge Diagnosis Discharge Diagnosis (1) Closed transcervical fracture of right femur: Qualifiers: Encounter type: subsequent encounter Fracture healing: with routine healing Qualified Code(s): S72.031D - Displaced midcervical fracture of right femur, subsequent encounter for closed fracture with routine healing Code(s): S72.031A - Displaced midcervical fracture of right femur, initial encounter for closed fracture Status: Acute (2) Fall: Code(s): W19.XXXA - Unspecified fall, initial encounter Status: Acute (3) Moderate protein-calorie malnutrition: Code(s): E44.0 - Moderate protein-calorie malnutrition Status: Acute (4) Hypertension: Code(s): I10 - Essential (primary) hypertension Status: Chronic (5) Hyperlipidemia: Code(s): E78.5 - Hyperlipidemia, unspecified Status: Chronic (6) Hypothyroidism: Qualifiers: Hypothyroidism type: unspecified Qualified Code(s): E03.9 - Hypothyroidism, unspecified Code(s): E03.9 - Hypothyroidism, unspecified Status: Chronic (7) Urinary retention: Code(s): R33.9 - Retention of urine, unspecified Status: Resolved (8) Dementia: Code(s): F03.90 - Unspecified dementia, unspecified severity, without behavioral disturbance, psychotic disturbance, mood disturbance, and anxiety Status: Acute DS: Summary Hospital Course Reason for hospitalization: Swing bed Right hip fracture s/p pinning Hospital Course: Patient admitted to Swing bed for rehab s/p right hip fracture with pinning. Patient has baseline mild dementia that has become worse since she fell and broke her hip. Patient is pleasant but confused. Initially patient was non weight bearing of RLE which limited her mobility as her dementia changes made it near impossible to keep patient from bearing weight on affected extremity. Once able to reach Orthopedics and advance her to TTB patient started doing well with standby and frequent reminders. However, it seems quite unlikely that patient will improve enough in the next month to return home with who is also experiencing dementia concerns. Decision was made to transition to [facility] for continued SNF Therapy. Patient accepted to [facility] 11/28/23 pending insurance authorization. Status at Discharge Cognitive/behavioral status at discharge: awake, alert, confused moderately Functional status at discharge: uses cane/walker Overall status at discharge: patient is progressing back to baseline Time Spent with Patient Time attestation: Total time spent providing and/or coordinating discharge services: 40 minutes Time spent: Greater than 30 minutes Exam Narrative: GENERAL: Nontoxic, no acute distress , pleasant HEAD: Normocephalic, atr aumatic. EYES: PER RLA and EOMI. ENT: ? Mucous membrane s pink and moist, nasal passages are clear, she is [place] and wears hearing aids NECK: Supple , no JVD, trachea midline CHEST: Luis ar to auscultation .? HEART: RRR, N ormal S1 and S2, N o murmurs, gallops , or friction rubs ABDOMEN: Soft, no ntender, nondisten ded, bowel sounds normoactive EXTREM ITIES: Right hip t juanpablo to palpation , doing well with TTWB restriction N EURO: Awake, alert , no neuro deficit s, pleasantly conf used with nonsensi stan speech at time s PSYCH: Normal mo od and affect. Int eractive ? DS: Data Data Completed and Pending Pending studies at discharge: UA with urine culture Discharge Plan Discharge Attending physician on discharge: Stanford Fenton Discharging Clinician: Magnus Scott Patient Disposition: SNF Activity: follow weight bearing status Diet: regul
[2023-11-28 13:57] LABS: Bilirubin Urine Negative (Negative); Blood Urine Negative (Negative); Color Urine Light Yellow (Yellow); Glucose Urine UA Negative (Negative); Ketones Urine Negative (Negative); Leukocyte Esterase Ur Negative LEU/UL (Negative); Nitrate Urine Negative (Negative); Protein Urine Negative (Negative); Urobilinogen Urine 0.2 mg/dL (0.2-1.0); pH Urine 6.5 (5.0-8.0)
--- NOTE | 2023-11-28 13:59 | PC.NURSE ---
[id number]. family transported [facility] to [facility] in [facility]. report given to baldemar.
[2023-11-28 14:02] LABS: Add Urine Microscopic? NO; Appearance Urine Cloudy (Clear)
--- NOTE | 2023-12-04 10:02 | PC.NURSE ---
Doing ok, holding her own per fabian daughter at [facility], no questions regarding dc instructions
== END 2023-11-28 13:35 | DRG 560 ==
PROVIDERS: Nurse Practitioner; Nurse Practitioner Acute Care; Admitting Provider Internal Medicine; Visit Provider Internal Medicine
DX: S72.031D Displaced midcervical fracture of right femur, subsequent encounter for closed fracture with routine healing (principal); E44.0 Moderate protein-calorie malnutrition; I10 Essential (primary) hypertension; E78.5 Hyperlipidemia, unspecified; E03.9 Hypothyroidism, unspecified; M81.0 Age-related osteoporosis without current pathological fracture; M19.90 Unspecified osteoarthritis, unspecified site; R33.9 Retention of urine, unspecified; F03.90 Unspecified dementia, unspecified severity, without behavioral disturbance, psychotic disturbance, mood disturbance, and anxiety; W19.XXXD Unspecified fall, subsequent encounter
CPT/HCPCS: 36415; 80053; 81003; 82565; 83735; 85025; 97110; 97161; 97165; 97530; 97535; A9270; J1650

== ENCOUNTER 2024-06-11 12:52 | Outpatient (CLI) | payer MEDICARE, SELFPAY ==
--- NOTE | ~2024-06-11 | US_ITS ---
EXAMINATION: US thyroid DATE: 06/11/2024 13:14 INDICATION: Nontoxic single thyroid nodule. TECHNIQUE: Multiple ultrasound images of the thyroid were obtained. COMPARISON: None. FINDINGS: The right thyroid lobe measures 3.4 x 1.1 x 1.0 cm. The left thyroid lobe measures 2.7 x 1.0 x 0.8 c m. In the right thyroid lobe, there is a 2.2 cm solid, hypoechoic, wider than tall nodule with mio h margins without echogenic foci (TI-RADS TR4). IMPRESSION: 1. Right thyroid nodule. Consider ultrasound-guided fine-needle aspiration. Reviewed, dictated and finalized at location A.
== END 2024-06-11 12:53 ==
LOC: MICIMG 12:54
PROVIDERS: PCP Family Medicine; Visit Provider Physician Assistant Medical
DX: E04.1 Nontoxic single thyroid nodule (principal)
CPT/HCPCS: 76536

== ENCOUNTER 2024-08-01 12:10 | Outpatient (CLI) | payer MEDICARE, SELFPAY ==
--- NOTE | ~2024-08-01 | US_ITS ---
EXAMINATION: US FNA w image guidance DATE: 08/01/2024 13:36 INDICATION: Other specified disorders of thyroid TECHNIQUE: A time-out was performed to verify the patient's name, date of , and procedure to be performed . The procedure and its benefits and risks were discussed with the patient. Risks specifically discus sed included bleeding and infection. The patient understood the risks and agreed to proceed. The neck was prepped and draped in the usual sterile manner. 6 mL 1% lidocaine was used for local anesthesia . 8 passes were made with a 25G needle into the lesion. Appropriate needle location was documented with continuous sonographic guidance. A sterile bandage was applied. There were no immediate compli cations. FINDINGS: Grayscale ultrasound images demonstrate biopsy needles advanced into a 1.8 cm solid hypoechoic right thyroid nodule. IMPRESSION: 1. Successful ultrasound-guided fine needle aspiration of a 1.8 cm TI-RADS 4 right thyroid nodule. Reviewed, dictated and finalized at location A. IMPRESSION: 1. Successful ultrasound-guided fine needle aspiration of a 1.8 cm TI-RADS 4 r ight thyroid nodule.
== END 2024-08-01 12:11 | disposition home or self-care (01) ==
PROVIDERS: PCP Family Medicine; Visit Provider Physician Assistant Medical
DX: E07.89 Other specified disorders of thyroid (principal)
CPT/HCPCS: 10005; 88172; 88173; 88177; 88305

== ENCOUNTER 2024-10-01 12:57 | Outpatient (CLI) | payer MEDICARE, SELFPAY | END 2024-10-01 12:58 | disposition home or self-care (01) | LOC: ANHLAB 12:59 | PROVIDERS: PCP Family Medicine; Visit Provider Family Medicine | DX: R32 Unspecified urinary incontinence (principal) | CPT/HCPCS: 87086 ==